=== PATIENT | female | born 1985 | race Caucasian/White ===

== ENCOUNTER 2016-11-29 22:13 | Inpatient (IN) | payer BC ==
[2016-11-29] MEDS ORDERED: ONDANSETRON INJ 4 MG/2 ML VIAL IV ONE ×2 (22:21→23:13)
--- NOTE | 2016-11-29 22:33 | ED.PDOC ---
History of Present Illness - General Chief Complaint: Diabetic Complaint Stated Complaint: elevated blood sugar Time Seen by Provider: 11/29/16 22:17 Source: patient, RN notes reviewed, Vital Signs reviewed, EMS Exam Limitations: no limitations - History of Present Illness Initial Comments: Patient presents to ER via EMS with c/o high blood sugar. Reports she started feeling bad around noon today. She took a nap and woke up around 15:00 and at that time her blood sugar was 450 so she took 3U of insulin. 45 minutes later her blood sugar was 540 so she took 6u of insulin. Her blood sugar continued to go up so she called EMS. + ESPINOZA, nausea and leg pain - typical symptoms for when her blood sugar is high. Last episode of DKA was ~2 months ago. She does have chronic leg pain/neuropathy which she takes Oxycontin for. Timing/Duration: getting worse - over past 10 hours Severity: moderate Improving Factors: nothing Worsening Factors: nothing Associated Symptoms: headaches, malaise, nausea/vomiting Allergies/Adverse Reactions: Allergies NO KNOWN ALLERGY Allergy (Verified 11/29/16 22:27) Home Medications: Ambulatory Orders Insulin Aspart [Novolog Flexpen] 11/29/16 Oxycodone HCl [Oxycontin] 40 mg PO Q12HR 11/29/16 RX: Alprazolam [Alprazolam ER] 0.5 mg PO BID 11/29/16 RX: Gabapentin 800 mg PO TID 11/29/16 Review of Systems - Review of Systems Constitutional: States: malaise, weakness Respiratory: States: no symptoms reported Cardiology: States: no symptoms reported Gastrointestinal/Abdominal: States: nausea, vomiting Musculoskeletal: States: other - chronic leg pain Skin: States: no symptoms reported Neurological: States: headache All other Systems: No Change from Baseline Past Medical History (General) - Patient Medical History Hx Seizures: No Hx Stroke: No Hx Dementia: No Hx Asthma: No Hx of COPD: No Hx Cardiac Disorders: No Hx Congestive Heart Failure: No Hx Pacemaker: No Hx Hypertension: No Hx Thyroid Disease: No Hx Diabetes: Yes Hx Gastroesophageal Reflux: No Hx Renal Disease: No Hx of HIV: No Hx MRSA: No - Vaccination History Hx Tetanus, Diphtheria Vaccination: Yes Hx Influenza Vaccination: Yes Hx Pneumococcal Vaccination: No - Social History Hx Tobacco Use: No Hx Alcohol Use: No Hx Substance Use: Yes Hx Substance Use Treatment: No Hx Depression: No - Female History Patient : No Family Medical History - Family History Mother Family History: Unknown Living Status: Still Living Physical Exam - Physical Exam General Appearance: Ill Appearing, Well Developed, Well Nourished, Other - Smell of acetone on breath Neck: non-tender, supple, normal inspection Respiratory: lungs clear, normal breath sounds, no respiratory distress, no accessory muscle use Cardiovascular/Chest: no gallop, no murmur, tachycardia Gastrointestinal/Abdominal: normal bowel sounds, non tender, soft, no organomegaly Extremity: normal range of motion, normal inspection Neurologic: alert, normal mood/affect, oriented x 3 Skin Exam: normal color, warm/dry Comments: Vital Signs 11/29/16 22:21 Temperature 98.3 F Pulse Rate [ 119 H left] Respiratory 18 Rate Blood Pressure 148/91 [left] O2 Sat by Pulse 97 Oximetry Progress - Progress Progress: 11/29/16 23:16 Blood sugar 696. Started on insulin drip @ 15U/hr. C/O leg/foot pain - will give Dilaudid 1mg IV Have given Zofran 4mg IV X2 Discussed with hospitalist. Will admit for DKA 11/29/16 23:17 Extremely difficult stick for IV and blood. Initially got enough blood for CMP and Acetone. Will get CBC with next draw if possible. - Results/Orders Results/Orders: Laboratory Tests 11/29/16 22:30 Sodium 124 L Potassium 4.2 Chloride 94 L Carbon Dioxide 12 L* Anion Gap 22.2 H BUN 14 Creatinine 0.98 BUN/Creatinine Ratio 14.3 Random Glucose 696 H* Serum Osmolality 283.3 Calcium 8.1 L Total Bilirubin 0.9 AST 25 ALT 46 Alkaline Phosphatase 128 H Serum Total Protein 6.9 Albumin 3.6 Globulin 3.3 Albumin/Globulin Ratio 1.1 Serum Ketones Moderate Departure - Departure Clinical Impression: Dehydration Diabetes mellitus with ketoacidosis Qualifiers: Diabetes mellitus type: type 1 Diabetes mellitus complication detail: without coma Qualified Code(s): E10.10 - Type 1 diabetes mellitus with ketoacidosis without coma Time of Disposition: 23:18 Disposition: Admit Patient Condition: Poor Departure Forms: ED Discharge - Pt. Copy, Patient Portal Self Enrollment Referrals: Taras Lockhart MD [Primary Care Provider] - 1-2 Weeks Home Medications: Ambulatory Orders Insulin Aspart [Novolog Flexpen] 11/29/16 Oxycodone HCl [Oxycontin] 40 mg PO Q12HR 11/29/16 RX: Alprazolam [Alprazolam ER] 0.5 mg PO BID 11/29/16 RX: Gabapentin 800 mg PO TID 11/29/16 Decision To Admit - Decistion To Admit Decision to Admit Reason: Admit from ER - DKA Decision to Admit Date: 11/29/16 Decision to Admit Time: 23:09
[2016-11-29] MEDS ORDERED: SODIUM CHL 0.9% 250ML (AVIVA) 250 ML IVPB ONE (22:51)
[2016-11-29] MEDS ORDERED: INSULIN, REG.(HUMAN) 100 U/ML VIAL ONE (22:52)
[2016-11-29] MEDS ORDERED: INSULIN, REG.(HUMAN) 250 UNITS in SODIUM CHL 0.9% 250ML (AVIVA) 247.5 ML IVPB SCH ×2 (23:00)
[2016-11-29] MEDS ORDERED: HYDROmorphone HCL INJ 2 MG/ML VIAL IV ONE (23:15)
[2016-11-29] MEDS ORDERED: IV SET AND CAP CHANGE INJ INJ SCH (23:45)
[2016-11-29] MEDS ORDERED: SODIUM CHLORIDE 0.9% 1000ML 1,000 ML IVS ONE (23:46)
--- NOTE | 2016-11-30 00:45 | HP ---
SUPERVISING PHYSICIAN: Earl Parker M.D. CHIEF COMPLAINT: Hyperglycemia. HISTORY OF PRESENT ILLNESS: Ms. Malagon is a 31 year-old female patient that presented to the Emergency Department late last night by EMS complaining of high blood sugars. She reported that she started feeling bad around noon on the date of admission. She took a nap, woke up around 3:00 and took her blood sugar and noted it was 450. She then took 3 units of insulin and 40 minutes later rechecked her blood sugar and it had gone up again to 450. Again, she took 6 units of insulin. Her blood sugar continued to rise therefore she called EMS. On arrival, EMS noted the patient had a headache, she was nauseated and was complaining of leg pain. Typically when she has elevated blood sugar she has leg pains and headaches. She does have a significant history of type 1 diabetes since age 8 and complications of neuropathy secondary to poor control. In the Emergency Department, the patient also notes that she just been recently treated for Strep throat this past Friday and started on Amoxicillin. She also reports that she had been having some nausea well over the last couple of weeks on and off, and several members in her household had been having similar symptoms. She had 1 episode of diarrhea but not any additional symptoms. Initial blood sugar in the Emergency Room showed that it was elevated at 696 and potassium was 4.2 with sodium 124 corrected for hyperglycemia was 138. Urinalysis showed to be within normal limits except for 500 glucose and she was noted to have a moderate amount of ketones. She was started on DKA protocol as it was noted that her carbon dioxide was 12 with anion gap of 22.2. She was started on insulin drip per protocol and is now going to be admitted for treatment of diabetic ketoacidosis. PAST MEDICAL HISTORY: 1. Type 1 diabetes mellitus diagnosed at age 8. 2. Peripheral neuropathy secondary to diabetes. 3. Chronic migraines. 4. Multiple episodes of endometriosis. PAST SURGICAL HISTORY: 1. Lap band procedure in 2004 and again in 2011. 2. Gastric sleeve in 2009. 3. Cosmetic surgery included abdominoplasty. 4. Endometrial ablation. HOME MEDICATIONS: 1. Lantus solostar 30 units daily at 1930. 2. Phenergan tablets 25 mg p.r.n. 3. Cymbalta 60 mg daily. 4. Ambien 10 mg at bedtime. 5. Gabapentin 800 mg t.i.d. 6. Alprazolam extended release 0.5 mg twice daily. 7. Oxycodone 40 mg every 12 hours. 8. NovoLog FlexPen sliding scale a.c. and h.s. ALLERGIES: NO KNOWN DRUG ALLERGIES. MEDICAL PROVIDERS: Test Operator - Denys Fuentes. Primary care physician - Dr. Lockhart. FAMILY HISTORY: Unremarkable. SOCIAL HISTORY: The patient is a housewife. She has never smoked. She did drink alcohol but has not drank since age 27. Denies any illicit drug use. REVIEW OF SYSTEMS: CONSTITUTIONAL: Notes general malaise, weakness. Denies any fever or chills. HEENT: Denies any headaches. Notes that she was just recently treated for Streptococcal pharyngitis. Denies any sore throat or ear pain. RESPIRATORY: No shortness of breath, cough or wheezing. CARDIOVASCULAR: No reported chest pains, palpitations or syncopal episodes. GASTROINTESTINAL: As noted in the History of Present Illness, nausea and vomiting. One episode of diarrhea but no constipation. NEUROLOGIC: Reports a headache. No vision changes. No hearing disturbances. No syncopal episodes. PHYSICAL EXAMINATION: VITAL SIGNS: On admission, temperature 98.3, pulse 119, blood pressure 148/91, respirations 18 to 20, satting 97% on room air. Weight is 91.6 kg. GENERAL: The patient appeared ill. She looks dehydrated with a smell of acetone on her breath which is somewhat significant, but alert. NECK: Supple, non-tender. Full range of motion. There is no jugular venous distention. CHEST: Lungs are clear to auscultation bilaterally without any rhonchi, wheezing or rales. CARDIOVASCULAR: Regular rate and rhythm without appreciable murmurs, gallops, or rubs. ABDOMEN: Soft, obese, non-tender with positive bowel sounds. EXTREMITIES: No clubbing, cyanosis or edema. NEUROLOGIC: She is alert and oriented times three. LABORATORY: Normal CBC on admission with a white count 10.5, hemoglobin 12.9, hematocrit 38.6, platelet count 348,000. Chemistries on admission showed sodium initially of 124, potassium 4.2, sodium corrected for a glucose of 696 was 138, chloride was down to 94, carbon dioxide was at 12, anion gap was up to 22.2, BUN 14, creatinine 0.98, glucose was 696, calcium 8.1. Liver functions showed to be within normal limits except for a slightly elevated alkaline phosphatase at 128. Urinalysis showed 500 glucose, otherwise within normal limits. Urine test was negative. Toxicology screen showed initial ketones in the Emergency Department showed to be a moderate amount. RADIOLOGY: There were no radiographic studies for review. ASSESSMENT: 1. Diabetic ketoacidosis felt to be secondary to underlying dehydration from persistent nausea and vomiting from a past viral infection versus complications from uncontrolled diabetes with a degree of gastroparesis. 2. Type 1 diabetes mellitus since 8 years of age. 3. Peripheral neuropathy complications from uncontrolled diabetes. 4. History of chronic migraines. PLAN: The patient will be admitted to the Medical/Surgical floor and started on DKA protocol. She was initiated on the protocol in the Emergency Department with insulin drip and IV fluids. Will plan to provide fluids and manage according to protocol. Repeat labs to include potassium levels, BNPs and ongoing finger sticks hourly as we titrate the blood sugars. Anticipate length of stay to be at least 2 to 3 days. Hopefully we will be able to transition the patient once she shows clearance of her ketones and is no longer in DKA to a diet as tolerated. Once she is tolerating a diet and able to handle subcutaneous insulin, will consider discontinuing the insulin drip and resuming her long-acting insulin Lantus as previous to hospitalization. Once stable and no longer showing any evidence of DKA, certainly the patient can be discharged to have close clinical followup with her candy wrapping machine operator, Dr. Avendaño and her primary care physician, Dr. Lockhart. Until discharge, will continue to monitor and treat appropriately. #[id number] [facility]
[2016-11-30] MEDS: INSULIN, REG.(HUMAN) 250 UNITS in SODIUM CHL 0.9% 250ML (AVIVA) 247.5 ML IVPB SCH ×8 (01:46→23:45)
[2016-11-30] MEDS ORDERED: KCL 40 MEQ/D5 1/2NS 1,000 ML IVS ONE (01:51)
[2016-11-30] MEDS ORDERED: KCL 40 MEQ/D5 1/2NS 1,000 ML IVS PRN ×2 (01:54→08:30)
[2016-11-30] MEDS: ACETAMINOPHEN 325 MG TAB PO PRN (01:59)
[2016-11-30] MEDS: ONDANSETRON INJ 4 MG/2 ML VIAL IV PRN (02:00)
[2016-11-30] MEDS ORDERED: HYDROmorphone HCL INJ 2 MG/ML VIAL IV ONE ×2 (03:28→08:44)
[2016-11-30] MEDS ORDERED: PROMETHAZINE HCL INJ 25 MG in SODIUM CHLORIDE 0.9% 50ML 50 ML IVPB ONE ×2 (03:29→12:24)
[2016-11-30] MEDS ORDERED: SODIUM CHLORIDE 0.9% 50ML 50 ML ONE ×2 (03:35→12:24)
[2016-11-30] MEDS ORDERED: PROMETHAZINE HCL INJ 25 MG/ML VIAL ONE ×2 (03:35→12:23)
[2016-11-30] MEDS ORDERED: GABAPENTIN 400 MG CAP PO SCH ×2 (06:16→09:00)
[2016-11-30] MEDS ORDERED: GABAPENTIN 400 MG CAP PO ONE ×2 (06:21→08:30)
[2016-11-30] MEDS ORDERED: MAGNESIUM SULFATE PREMIX 2GM 2 GM in PREMIX BAG 1 BAG IVPB ONE (06:38)
[2016-11-30] MEDS ORDERED: DULoxetine HCL 30 MG CAP PO ONE (08:02)
[2016-11-30] MEDS ORDERED: MAGNESIUM SULFATE PREMIX 2GM 50 ML IVPB ONE (08:02)
[2016-11-30] MEDS ORDERED: HYDROmorphone HCL INJ 2 MG/ML VIAL ONE ×2 (08:37→12:24)
[2016-11-30] MEDS: SODIUM CHLORIDE 0.9% (FLUSH) 10 ML SYG IV PRN ×3 (08:47→16:35)
[2016-11-30] MEDS: GABAPENTIN 400 MG CAP PO SCH ×3 (08:53→20:38)
[2016-11-30] MEDS: DULoxetine HCL 30 MG CAP PO SCH (08:53)
[2016-11-30] MEDS ORDERED: DEXTROSE 50% 25 GM/50 ML SYG IV PRN (09:32)
[2016-11-30] MEDS ORDERED: GLUCAGON INJ 1 MG VIAL SUBCU PRN (09:32)
[2016-11-30] MEDS: INSULIN LISPRO 100 UNITS/ML PEN SUBCU SCH ×5 (09:52→22:14)
[2016-11-30] MEDS ORDERED: METOCLOPRAMIDE HCL 10 MG/10 ML PO SCH (11:30)
[2016-11-30] MEDS ORDERED: KCL 20MEQ/0.45% NS 1,000 ML IVS PRN (11:41)
[2016-11-30] MEDS: PROMETHAZINE HCL 25 MG TAB PO PRN ×2 (11:55→20:38)
[2016-11-30] MEDS ORDERED: METOCLOPRAMIDE HCL INJ 10 MG/2 ML VIAL IV ONE (12:22)
[2016-11-30] MEDS ORDERED: METOCLOPRAMIDE HCL INJ 10 MG/2 ML VIAL ONE (12:23)
[2016-11-30] MEDS ORDERED: PROMETHAZINE HCL INJ 12.5 MG in SODIUM CHLORIDE 0.9% 50ML 50 ML IVPB PRN (12:24)
[2016-11-30] MEDS ORDERED: KETOROLAC TROMETHAMINE INJ 30 MG/ML VIAL IV ONE (12:28)
[2016-11-30] MEDS: HYDROmorphone HCL INJ 2 MG/ML VIAL IV PRN (12:38)
--- NOTE | 2016-11-30 13:18 | PCM.CORE ---
Physician DVT/VTE - Nurse DVT Assessment & Total Each Risk Factor Represents 1 Point: Medical PT at Bed Rest Each Risk Factor is 1 Point: Obesity (BMI >25) DVT Assessment Score: 2 - 2 Moderate Risk Treatments: Early Ambulation *, Sequential Compression Device Pharmacological: Enoxaparin 40mg SQ Daily
[2016-11-30] MEDS ORDERED: SODIUM CHL 0.9% 250ML (AVIVA) 250 ML IVPB ONE (13:20)
[2016-11-30] MEDS ORDERED: INSULIN, REG.(HUMAN) 100 U/ML VIAL ONE (13:21)
[2016-11-30] MEDS ORDERED: KCL 20MEQ/D5 1/2NS 1,000 ML IVS PRN (13:54)
[2016-11-30] MEDS: ENOXAPARIN SODIUM 40 MG/0.4 ML SYG SUBCU SCH (14:22)
[2016-11-30] MEDS: METOCLOPRAMIDE HCL INJ 10 MG/2 ML VIAL IV SCH ×2 (16:34→20:35)
[2016-11-30] MEDS ORDERED: INSULIN DETEMIR 100 UNITS/ML PEN SUBCU ONE ×2 (20:18→23:55)
[2016-11-30] MEDS ORDERED: KCL 20MEQ/0.45% NS 1,000 ML IVS ONE (20:27)
[2016-11-30] MEDS: ALPRAZolam 0.5 MG TAB PO SCH (20:39)
[2016-11-30] MEDS: KCL 20MEQ/0.45% NS 1,000 ML IVS PRN (20:40)
[2016-11-30] MEDS: ZOLPIDEM TARTRATE 10 MG TAB PO SCH (21:28)
[2016-12-01] MEDS: INSULIN LISPRO 100 UNITS/ML PEN SUBCU SCH ×6 (00:03→22:14)
[2016-12-01] MEDS: HYDROmorphone HCL INJ 2 MG/ML VIAL IV PRN ×6 (00:38→23:17)
[2016-12-01] MEDS: ZOLPIDEM TARTRATE 10 MG TAB PO SCH ×2 (00:41→20:34)
[2016-12-01] MEDS ORDERED: KCL 20MEQ/0.45% NS 1,000 ML IVS ONE (03:58)
[2016-12-01] MEDS: KCL 20MEQ/0.45% NS 1,000 ML IVS PRN (04:00)
[2016-12-01] MEDS ORDERED: SODIUM CHLORIDE 0.9% 1000ML 1,000 ML IVS ONE (06:17)
[2016-12-01] MEDS ORDERED: SODIUM CHLORIDE 0.45% 1000ML 1,000 ML IVS ONE ×2 (06:24→08:37)
[2016-12-01] MEDS ORDERED: INSULIN, REG.(HUMAN) 100 U/ML VIAL IV ONE (06:32)
[2016-12-01] MEDS ORDERED: SODIUM CHL 0.9% 250ML (AVIVA) 250 ML IVPB ONE ×2 (06:42→18:59)
[2016-12-01] MEDS ORDERED: INSULIN, REG.(HUMAN) 100 U/ML VIAL ONE ×2 (06:43→18:59)
[2016-12-01] MEDS ORDERED: SODIUM CHLORIDE 0.45% 1000ML 1,000 ML IVS PRN (07:00)
[2016-12-01] MEDS: INSULIN, REG.(HUMAN) 250 UNITS in SODIUM CHL 0.9% 250ML (AVIVA) 247.5 ML IVPB SCH ×4 (07:38→12:10)
--- NOTE | 2016-12-01 08:29 | PN ---
SUPERVISING PHYSICIAN: Earl Parker MD DATE: 11/30/16 SUBJECTIVE: The patient has had some nausea today. She was unable to tolerate diet earlier in the day and has been on need for n.p.o. status and insulin drills. I discussed with her the fact that she has had such uncontrolled diabetes, possibly she is having some problems with gastroparesis and discussed utilizing Reglan in efforts to help her tolerate oral diet. She remains afebrile. She has had no diarrhea. OBJECTIVE: VITAL SIGNS: Temperature 98.1, pulse 83, blood pressure 101/66, respirations 14 , saturation 98%. I&O: Positive balance of 751 with 2351 in and 1600 out. Weight 91.6 kg. GENERAL: The patient appears to be much more comfortable. She is in no distress. She is alert and oriented x3. CHEST: Lungs are clear to auscultation bilaterally. HEART: Regular rate and rhythm. ABDOMEN: Soft, non-tender, positive bowel sounds. EXTREMITIES: No cyanosis, clubbing, or edema. NEUROLOGIC: She is alert and oriented x 3. LABORATORY: CBC showed a white count of 8.7, hemoglobin 12.2, hematocrit 35.9, platelet count 339,000, differential was negative. Chemistries: electrolytes have now normalized. Blood sugar is stable and has been between 119 and 302. Anion gap has now normalized and is a 14.9 as well as ketones have gone to negative. Electrolytes within normal limits. Potassium 3.9. Liver function within normal limits. Magnesium low at 1.6. ASSESSMENT: 1. Metabolic acidosis secondary to diabetic ketoacidosis felt to be related persistent nausea and vomiting complications from uncontrolled diabetes to include a degree of gastroparesis showing improvement with Reglan. 2. Type 1 diabetes mellitus since 8 years of age. 3. Peripheral neuropathy complicated by uncontrolled diabetes with' hemoglobin A1c being elevated at 11. 4. History of chronic migraines. PLAN: The patient remains on insulin drip, is being transitioned to subcu insulin as she is able to tolerate a diet. We attempted diet earlier today, she was obviously not tolerating this as she was having some vomiting with no nausea. We are going to utilize Reglan a.c. and h.s. after a single loading dose of 10 mg. We will start a diet of full liquids and advance as tolerated. As she is able to come off the drip, we will start her on subcu ling acting insulin with Levemir as well as transition to a.c. and h.s. blood sugars. Plan to restart her medications once they are verified. She will be on DVT prophylaxis. Will continue with IV fluids depending on her status on insulin drip. Apparently she was on D5 half normal saline with 20 of potassium and was running at 200 an hour. After she transitions to subcu, we will transition her fluids to half normal saline and remain tenderness potassium replacement as needed and saturate fluid to hydration status. Anticipate discharge hopefully tomorrow or Friday, once she is able to fully tolerate diet and shows stabilization of her blood sugars once off insulin drip. Until discharge, we will continue to monitor her closely and treat appropriately Once discharged, she will certainly need to have followup with her well services operator in [place] , Dr. Avendaño, and her primary care physician, Dr. Lockhart. #[id number] [facility]
[2016-12-01] MEDS ORDERED: SODIUM CHLORIDE 0.45% IVS PRN (08:34)
[2016-12-01] MEDS ORDERED: POTASSIUM CHLORIDE IVS PRN (08:34)
[2016-12-01] MEDS ORDERED: POTASSIUM CHLORIDE 40mEq 20ML VIAL ONE (08:37)
[2016-12-01] MEDS: METOCLOPRAMIDE HCL INJ 10 MG/2 ML VIAL IV SCH ×5 (08:42→20:34)
[2016-12-01] MEDS: DULoxetine HCL 30 MG CAP PO SCH (09:38)
[2016-12-01] MEDS: GABAPENTIN 400 MG CAP PO SCH ×3 (09:39→20:34)
[2016-12-01] MEDS: ALPRAZolam 0.5 MG TAB PO SCH ×2 (09:39→20:34)
[2016-12-01] MEDS: ENOXAPARIN SODIUM 40 MG/0.4 ML SYG SUBCU SCH (09:39)
[2016-12-01] MEDS ORDERED: KCL 40 MEQ/D5 1/2NS 1,000 ML IVS ONE (09:58)
[2016-12-01] MEDS ORDERED: KCL 40 MEQ/D5 1/2NS 1,000 ML IVS PRN (10:00)
[2016-12-01] MEDS: ACETAMINOPHEN 325 MG TAB PO PRN (13:42)
[2016-12-01] MEDS: KCL 20MEQ/D5 1/2NS 1,000 ML IVS PRN ×3 (14:56→22:57)
[2016-12-01] MEDS ORDERED: INSULIN DETEMIR 100 UNITS/ML PEN SUBCU SCH (21:00)
[2016-12-02] MEDS: INSULIN, REG.(HUMAN) 250 UNITS in SODIUM CHL 0.9% 250ML (AVIVA) 247.5 ML IVPB SCH ×2 (00:09)
[2016-12-02] MEDS: ONDANSETRON INJ 4 MG/2 ML VIAL IV PRN ×2 (01:40→07:39)
[2016-12-02] MEDS: HYDROmorphone HCL INJ 2 MG/ML VIAL IV PRN (03:15)
[2016-12-02] MEDS: KCL 20MEQ/D5 1/2NS 1,000 ML IVS PRN (03:17)
[2016-12-02] MEDS: INSULIN LISPRO 100 UNITS/ML PEN SUBCU SCH (06:24)
[2016-12-02] MEDS: METOCLOPRAMIDE HCL INJ 10 MG/2 ML VIAL IV SCH ×2 (06:28→11:01)
[2016-12-02] MEDS: ACETAMINOPHEN 325 MG TAB PO PRN (06:39)
[2016-12-02] MEDS: GABAPENTIN 400 MG CAP PO SCH (08:30)
[2016-12-02] MEDS: ENOXAPARIN SODIUM 40 MG/0.4 ML SYG SUBCU SCH (08:30)
[2016-12-02] MEDS: DULoxetine HCL 30 MG CAP PO SCH (08:30)
[2016-12-02] MEDS: PROMETHAZINE HCL 25 MG TAB PO PRN (08:30)
[2016-12-02] MEDS: ALPRAZolam 0.5 MG TAB PO SCH (08:30)
[2016-12-02 09:04] VITALS: O2SAT 93
[2016-12-02] MEDS ORDERED: SODIUM CHLORIDE 0.9% (FLUSH) 10 ML SYG IV SCH (09:30)
[2016-12-02] MEDS ORDERED: INSULIN, REG.(HUMAN) 100 U/ML VIAL SUBCU ONE (09:55)
[2016-12-02] MEDS ORDERED: INSULIN DETEMIR 100 UNITS/ML PEN SUBCU ONE (10:02)
--- NOTE | 2016-12-02 10:19 | PN ---
SUPERVISING PHYSICIAN: Earl Parker MD DATE: 12/01/16 SUBJECTIVE: The patient is no longer having any nausea but last night she was transitioned to subcu insulin and this morning it was noted she had gone back in DKA with a glucose over 600. Therefore, she has been reinitiated on DKA protocol. She does remain afebrile. She has had no diarrhea. She was given Reglan in efforts to stop the nausea and vomiting which appears to help. OBJECTIVE: VITAL SIGNS: Temperature 97.9, pulse 88, blood pressure 100/67, respirations 14 , saturation 98% on room air. I&O: Still positive balance of 3618 with 6418 in and 2800 out with 400 emesis. .. CHEST: Lungs are clear to auscultation bilaterally. HEART: Regular rate and rhythm. ABDOMEN: Obese, soft, non-tender, positive bowel sounds. EXTREMITIES: No cyanosis, clubbing, or edema. NEUROLOGIC: She is alert and oriented x 3. LABORATORY: CBC this morning shows a white count of 10,000, hemoglobin 11.8, hematocrit 36.0, platelet count 306,000, differential within normal limits. Chemistries: Blood sugars yesterday were fairly well controlled on insulin drip ranging in the 120s up to 283. This morning, AM labs showed that her sodium was low at 131 , corrected for a glucose of 604 was at 140, potassium up to 5.2, carbon dioxide down to 19, anion gap elevated up to 18. BUN 9, creatinine 0.86, calcium 8.4, magnesium once again low at 1.7 despite replacement. Liver functions showed to be within normal limits. Lipase and amylase both within normal limits as well as TSH was at 1.75. RADIOLOGY/MICROBIOLOGY: No studies for review. ASSESSMENT: 1. Metabolic acidosis secondary to diabetic ketoacidosis likely related to nausea and vomiting previous admission with complications from uncontrolled diabetes with a degree of gastroparesis showing slow improvement in refractory resulting in recurrence of DK and despite aggressive treatment requiring initiation of DKA protocol once again. 2. Type 1 diabetes mellitus since 8 years of age with poor control as evidenced by a recent A1C of 11 on admission. 3. Peripheral neuropathy complications from uncontrolled diabetes.. 4. History of chronic migraines. PLAN: The patient has been reinitiated on DKA protocol with plans to increase her fluids to 2 liters this morning and this will be continued with IV fluids at 200 to 250 an hour as appropriate clinically. She will be on insulin drip as per protocol. Again, once she shows resolution clinically of DKA, slowly transition her to subcu insulin once she hs completely rehydrated. Hopefully, we will be able to start her on a diet this afternoon and in the morning stop the insulin drip and continue treatment with long acting and sliding scale. Until discharge, we will continue to monitor as per protocol and treat appropriately. #[id number] [facility]
[2016-12-02] MEDS ORDERED: MAGNESIUM SULFATE PREMIX 2GM 2 GM in PREMIX BAG 1 BAG IVPB ONE (10:24)
[2016-12-02] MEDS ORDERED: MAGNESIUM SULFATE PREMIX 2GM 50 ML IVPB ONE (10:27)
[2016-12-02] MEDS ORDERED: INSULIN LISPRO 100 UNITS/ML PEN SUBCU SCH ×6 (12:16→16:30)
[2016-12-02 13:47] VITALS: BP 115/53; TEMP 98.3
--- NOTE | 2016-12-12 22:13 | DS ---
SUPERVISING PHYSICIAN: Sammy Swan M.D. DISCHARGE DIAGNOSIS: 1. Metabolic acidosis secondary to diabetic ketoacidosis due to persistent nausea and vomiting prior to admission from complications of uncontrolled diabetes secondary to gastroparesis showing improvement after treatment with DKA protocol. 2. Type 1 diabetes mellitus since 8 years of age with poor control as evidenced by recent A1C of 11 on admission. 3. Peripheral neuropathy complications from uncontrolled diabetes. 4. Gastroparesis complications from uncontrolled diabetes. 5. History of chronic migraines. HISTORY OF PRESENT ILLNESS: Ms. Malagon is a 31 year-old female patient that presented to the Emergency Department on the night of 11/29/16 by EMS complaining of high blood sugars. She reported that she started feeling bad around noon on the date of admission. She took a nap, woke up around 3:00 and took her blood sugar and noted it was 450. She then took 3 units of insulin and 40 minutes later rechecked her blood sugar and it had gone up to 450. Again , she took 6 units of insulin. Her blood sugar continued to increase therefore she called EMS. On arrival, EMS noted the patient had a headache, she was nauseated and was complaining of leg pains. Typically when she has elevated blood sugar she has leg pains and headaches. She does have a significant history of type 1 diabetes since age 8 and complications of neuropathy secondary to poor control. In the Emergency Department, the patient noted that she had just been recently treated for Strep throat infection that was treated this past Friday and started on Amoxicillin. She also reported that she had been having some nausea over the last couple of weeks on and off, and several members in her household had been having similar symptoms. She had 1 episode of diarrhea but no additional symptoms prior to admission. Initial blood sugar in the Emergency Room showed that it was elevated at 696 and potassium was 4.2. Urinalysis showed to be within normal limits except for excessive glucose at 500 and she was noted to have a moderate amount of ketones. She was then started on DKA protocol as it was noted that her carbon dioxide was 12 with anion gap of 22.2. She was started on insulin drip per protocol and then admitted to the Medical/Surgical floor for treatment of diabetic ketoacidosis. LABORATORY: White count on admission was 10,500, at discharge was 10,100, hemoglobin and hematocrit were stable, at discharge were 11.8 and 36.0 with platelet count 306,000. Differential was within normal limits. Blood gas analysis showed that she was acidotic at 7.31 with bicarb of 17, PCO2 of 35 with PO2 of 58 with O2 saturations 90% on room air. Initial chemistries in the Emergency Department showed she had a glucose of 696, sodium 124 with correction to 135, potassium 4.2, carbon dioxide was 12, anion gap was 22.2. Serum osmolality was 283, calcium 8.1, magnesium 1.6. Liver functions showed to be within normal limits except for a slightly elevated alkaline phosphatase at 128. HOSPITAL COURSE: After starting initial DKA protocol, blood sugars showed good response. On 11/30/16, it was down to 133 and after IV fluids and continued treatment her anion gap had normalized and was at 11. Sodium was normal at 137 , potassium 3.7. She remained on insulin drip throughout the day and slowly transitioned to p.o. fluids, and around midnight or shortly before was transitioned to subcue insulin, however she once again went back in DKA on the morning of 12/01/16 where she was noted that her carbon dioxide was 19, sodium was 131, potassium was 5.2, glucoses went up to 604 again. She was then reinitiated on insulin drip per protocol for DKA and treated aggressively with fluids for an additional 18 hours after which time she was transitioned to subcue insulin and her sodium was 136, potassium 4.6, glucose was 164. She was showing stable glucoses in the 120s to 150s. She was then able to be transitioned to subcue insulin at which time insulin protocol was stopped. She was started on diet and was tolerating diet well. On date of discharge in the afternoon was able to tolerate diet with no nausea or vomiting and was showing stable blood sugars. In treatment of gastroparesis, she was given Reglan initially 10 mg. This was followed-up with 5 mg a.c. and h.s. which she tolerated well with no complications. On the afternoon of 12/02/16, the patient had shown good response clinically and was to be discharged to continue with treatment in the outpatient setting. PLAN: Ms. Malagon was discharged on 12/02/16. She is to have closely clinical followup with her research compliance specialist, Dr. Henriquez and Dr. Lockhart as scheduled. She is to see Dr. Henriquez on 12/04/16 and on 12/06/[address] Lockhart. She is to resume her home medications as instructed. She was told to take her new prescriptions as directed and encourage fluids to prevent any dehydration. She is to return to the hospital should she have any concerning symptoms. At discharge, the only new medication prescribed was Reglan 5 mg before meals and at bedtime, #30 until she is seen in followup by her research compliance specialist. She is to follow a sliding scale and continue all other medications as prior to discharge. Diet at discharge is diabetic diet. Activity was to increase activity as tolerated. Condition at discharge was stable and improved. #[id number] [facility] [place]
== END 2016-12-02 15:01 | disposition home or self-care (01) | DRG 639 ==
LOC: ER 22:13 → MS 11-30 00:44 → OBSVTOIN 11-30 00:44
PROVIDERS: ADMIT Nurse Practitioner Family; ATTEND Nurse Practitioner Family
DX: E10.10 Type 1 diabetes mellitus with ketoacidosis without coma (principal); E10.65 Type 1 diabetes mellitus with hyperglycemia; E10.43 Type 1 diabetes mellitus with diabetic autonomic (poly)neuropathy; K31.84 Gastroparesis; E86.0 Dehydration; G43.909 Migraine, unspecified, not intractable, without status migrainosus; Z68.34 Body mass index [BMI] 34.0-34.9, adult; E66.9 Obesity, unspecified; Z98.84 Bariatric surgery status; Z79.4 Long term (current) use of insulin; Z79.899 Other long term (current) drug therapy; Z79.891 Long term (current) use of opiate analgesic; E10.42 Type 1 diabetes mellitus with diabetic polyneuropathy

== ENCOUNTER 2016-12-30 16:19 | Emergency (ER) | payer BC ==
[2016-12-30 16:35] VITALS: TEMP 98.4
[2016-12-30] MEDS ORDERED: LACTATED RINGERS 1,000 ML IVS ONE ×2 (16:59→19:33)
--- NOTE | 2016-12-30 16:59 | ED.PDOC ---
History of Present Illness - General Chief Complaint: General Stated Complaint: internal ovarian type pain Time Seen by Provider: 12/30/16 16:23 Source: patient Exam Limitations: no limitations - History of Present Illness Initial Comments: Bobbi Malagon 31 y/o female stated that she had been having intermittent mid abdominal pains for the last one week which got worse today .Had regular bm ,no diarrhea,felt nauseated just ate breakfast. Timing/Duration: 1 week, getting worse Severity: moderate Improving Factors: nothing Worsening Factors: nothing Associated Symptoms: denies symptoms Allergies/Adverse Reactions: Allergies NO KNOWN ALLERGY Allergy (Verified 11/29/16 22:27) Home Medications: Ambulatory Orders Alprazolam [Alprazolam ER] 0.5 mg PO BID 11/29/16 Gabapentin 800 mg PO TID 11/29/16 Insulin Aspart [Novolog Flexpen] unit SC ACHS 11/29/16 Oxycodone HCl [Oxycontin] 40 mg PO Q12HR 11/29/16 Duloxetine HCl [Cymbalta] 60 mg PO QAM 11/30/16 Insulin Glargine [Lantus Solostar] 30 unit SC DAILY@1930 11/30/16 Promethazine Tab [Phenergan Tablet] 25 tablet PO PRN PRN 11/30/16 Zolpidem Tartrate [Ambien] 10 mg PO BEDTIME 11/30/16 Metoclopramide Tab [Reglan Tab] 5 mg PO ACHS #30 tab 12/02/16 Review of Systems - Review of Systems Constitutional: States: no symptoms reported EENTM: States: no symptoms reported Respiratory: States: no symptoms reported Cardiology: States: no symptoms reported Gastrointestinal/Abdominal: States: abdominal pain Genitourinary: States: no symptoms reported Musculoskeletal: States: no symptoms reported Past Medical History (General) - Patient Medical History Hx Seizures: No Hx Stroke: No Hx Dementia: No Hx Asthma: No Hx of COPD: No Hx Cardiac Disorders: No Hx Congestive Heart Failure: No Hx Pacemaker: No Hx Hypertension: No Hx Thyroid Disease: No Hx Diabetes: Yes - IDDM Hx Gastroesophageal Reflux: No Hx Renal Disease: No Hx of HIV: No Hx MRSA: No Surgical History: gastric bypass - gastric sleeve - Vaccination History Hx Tetanus, Diphtheria Vaccination: Yes Hx Influenza Vaccination: No Hx Pneumococcal Vaccination: No - Social History Hx Tobacco Use: Yes Hx Alcohol Use: Yes Hx Substance Use: No Hx Substance Use Treatment: No Hx Depression: Yes Hx Physical Abuse: No Hx Emotional Abuse: No - Activities of Daily Living Patient Lives Alone: No - family - Female History Hx Last Menstrual Period: 12/19/16 Patient : No - Triage Comment ED Triage Comment: Pt states she has severe ovarian type pain that started 4 days ago that has gotten worse throughout the day today. Family Medical History - Family History Mother Family History: Unknown Living Status: Still Living Hx Family Asthma: No Hx Family Congestive Heart Failure: No Hx Family Hypertension: No Hx Family Stroke: No Hx Cardiac Disease: No Hx Family Diabetes: No Hx Family Cancer: No Father Family History: Unknown Living Status: Still Living Hx Family Asthma: No Hx Family Congestive Heart Failure: No Hx Family Hypertension: No Hx Family Stroke: No Hx Cardiac Disease: No Hx Family Diabetes: No Hx Family Cancer: No Physical Exam - Physical Exam General Appearance: Alert, Comfortable, No apparent distress Eye Exam: bilateral normal Ears, Nose, Throat: hearing grossly normal, normal ENT inspection, normal pharynx Neck: full range of motion, supple Respiratory: chest non-tender, lungs clear, normal breath sounds Cardiovascular/Chest: normal peripheral pulses, regular rate, rhythm, no murmur Peripheral Pulses: radial,right: 2+, radial,left: 2+ Gastrointestinal/Abdominal: normal bowel sounds, soft, tenderness - mid abdomen no peritoneal signs Back Exam: no CVA tenderness, no vertebral tenderness Extremity: non-tender, no pedal edema, no calf tenderness Neurologic: no motor/sensory deficits, alert, oriented x 3 Skin Exam: normal color, warm/dry Progress - Progress Progress: 12/30/16 20:40 Last Vital Signs Temp 98.4 F 12/30/16 16:30 Pulse 107 H 12/30/16 16:30 Resp 18 12/30/16 16:30 BP 153/83 12/30/16 16:30 Pulse Ox 98 12/30/16 16:30 Laboratory Tests 12/30/16 12/30/16 12/30/16 16:59 17:18 17:18 WBC 11.6 H RBC 4.99 Hgb 15.2 Hct 44.8 MCV 89.8 MCH 30.4 MCHC 34.0 RDW 13.5 Plt Count 416 H MPV 8.9 Absolute Neuts (auto) 8.80 H Absolute Lymphs (auto) 1.70 Absolute Monos (auto) 0.70 Absolute Eos (auto) 0.10 Absolute Basos (auto) 0.20 H Neutrophils % 76.2 Lymphocytes % 14.8 L Monocytes % 5.8 Eosinophils % 1.3 Basophils % 1.9 Sodium 135 Potassium 3.3 L Chloride 101 Carbon Dioxide 19 L Anion Gap 18.3 H BUN 12 Creatinine 1.03 BUN/Creatinine Ratio 11.7 Random Glucose 267 H Serum Osmolality 279.2 Calcium 9.4 Total Bilirubin 1.1 H AST 19 ALT 15 Alkaline Phosphatase 119 Serum Total Protein 8.2 Albumin 4.2 Globulin 4.0 H Albumin/Globulin Ratio 1.1 Lipase < 14 L Serum HCG, Qual Urine Color Urine Appearance Urine pH Ur Specific [place] Urine Protein Urine Glucose (UA) Urine Ketones Urine Blood Urine Nitrite Urine Bilirubin Urine Urobilinogen Ur Leukocyte Esterase Urine RBC Urine WBC Ur Epithelial Cells Amorphous Sediment Urine Bacteria Urine Yeast Urine Opiates Screen Negative Urine Barbiturates Negative Ur Phencyclidine Scrn Negative U Amphetamin/Meth Scrn Negative U Benzodiazepines Scrn Negative U Cocaine Metab Screen Negative U Cannabinoids Screen Negative 12/30/16 12/30/16 17:18 17:25 WBC RBC Hgb Hct MCV MCH MCHC RDW Plt Count MPV Absolute Neuts (auto) Absolute Lymphs (auto) Absolute Monos (auto) Absolute Eos (auto) Absolute Basos (auto) Neutrophils % Lymphocytes % Monocytes % Eosinophils % Basophils % Sodium Potassium Chloride Carbon Dioxide Anion Gap BUN Creatinine BUN/Creatinine Ratio Random Glucose Serum Osmolality Calcium Total Bilirubin AST ALT Alkaline Phosphatase Serum Total Protein Albumin Globulin Albumin/Globulin Ratio Lipase Serum HCG, Qual Negative Urine Color Yellow Urine Appearance Clear Urine pH 5.0 Ur Specific [place] 1.015 Urine Protein Negative Urine Glucose (UA) 500 H Urine Ketones >=160 Urine Blood Trace-intact H Urine Nitrite Negative Urine Bilirubin Small H Urine Urobilinogen 0.2 Ur Leukocyte Esterase Negative Urine RBC 0-1 Urine WBC 1-3 Ur Epithelial Cells 1-3 Amorphous Sediment 1+ Urine Bacteria Rare Urine Yeast 1+ budding H Urine Opiates Screen Urine Barbiturates Ur Phencyclidine Scrn U Amphetamin/Meth Scrn U Benzodiazepines Scrn U Cocaine Metab Screen U Cannabinoids Screen - EKG/XRAY/CT CT Ordered: Yes - abd /pelvis : no acute abnormalities Departure - Departure Clinical Impression: Abdominal pain Qualifiers: Abdominal location: unspecified location Qualified Code(s): R10.9 - Unspecified abdominal pain Time of Disposition: 20:56 Disposition: Discharge to Home or Self Care Departure Forms: ED Discharge - Pt. Copy, Patient Portal Self Enrollment Instructions: DI for Abdominal Pain-Adult Referrals: Taras Lockhart MD [Primary Care Provider] - 1-2 Weeks Home Medications: Ambulatory Orders Alprazolam [Alprazolam ER] 0.5 mg PO BID 11/29/16 Gabapentin 800 mg PO TID 11/29/16 Insulin Aspart [Novolog Flexpen] unit SC ACHS 11/29/16 Oxycodone HCl [Oxycontin] 40 mg PO Q12HR 11/29/16 Duloxetine HCl [Cymbalta] 60 mg PO QAM 11/30/16 Insulin Glargine [Lantus Solostar] 30 unit SC DAILY@1930 11/30/16 Promethazine Tab [Phenergan Tablet] 25 tablet PO PRN PRN 11/30/16 Zolpidem Tartrate [Ambien] 10 mg PO BEDTIME 11/30/16 Metoclopramide Tab [Reglan Tab] 5 mg PO ACHS #30 tab 12/02/16 Additional Instructions: Continue with current medication;Follow up with primary md 12/31/2016 call for appointment
[2016-12-30] MEDS ORDERED: MORPHINE SULFATE INJ 10 MG/ML VIAL IV ONE (18:46)
[2016-12-30] MEDS ORDERED: PROMETHAZINE HCL INJ 25 MG/ML VIAL IM ONE (18:46)
--- NOTE | 2016-12-30 20:27 | CT ---
EXAM DESCRIPTION: Abdomen/Pelvis w/Contrast CLINICAL HISTORY: pain COMPARISON: 07/06/2011 TECHNIQUE: Contiguous axial images of the abdomen and pelvis were obtained after the administration of intravenous contrast followed by reconstruction images.This exam was performed according to our departmental dose-optimization program, which includes automated exposure control, adjustment of the mA and/or kV according to patient size and/or use of iterative reconstruction technique. FINDINGS: There is pancreatic atrophy. Distal stomach wall is mildly thickened but there is no definite surrounding inflammation of the fat. At the uterine fundus there are metallic linear densities that could reflect postoperative change. Clinical correlation with history is recommended. There are small foci of gas in the right posterior flank subcutaneous fat, which is nonspecific. There is no associated mass or significant fluid in this region. The liver, spleen, pancreas and kidneys are within normal limits. There is no hydronephrosis. The gallbladder is unremarkable. Adrenal glands are within normal limits. Aorta is normal in caliber and tapering. No significant free fluid. No free air. No bowel obstruction. There is no stranding of the mesenteric fat. The appendix appears normal. No evidence of periappendiceal inflammation. IMPRESSION: Possible mild inflammation of the distal stomach wall. Nonspecific small amounts of gas in the right flank subcutaneous fat. 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
[2016-12-30] MEDS ORDERED: PANTOPRAZOLE SODIUM IV 40 MG VIAL IV ONE (20:46)
[2016-12-30] MEDS ORDERED: HYDROCOD/APAP 7.5/325 (ER DISP) #3 TAB PO ONE (21:05)
[2016-12-30] MEDS ORDERED: HYDROCOD/APAP 10/325 (ER DISP) # 3 tablets PO ONE (21:26)
[2016-12-30 21:39] VITALS: BP 143/77; O2SAT 99
== END 2016-12-30 21:46 | disposition home or self-care (01) ==
LOC: ER 16:19
DX: R10.9 Unspecified abdominal pain (principal); F32.9 Major depressive disorder, single episode, unspecified; E11.9 Type 2 diabetes mellitus without complications; Z87.891 Personal history of nicotine dependence; Z98.84 Bariatric surgery status; Z79.4 Long term (current) use of insulin; Z79.899 Other long term (current) drug therapy
CPT/HCPCS: 36415; 74177; 80053; 80307; 81001; 83690; 84703; 85025; J2270; J2550; J7120

== ENCOUNTER 2017-01-02 20:06 | Emergency (ER) | payer BC ==
--- NOTE | 2017-01-02 21:29 | ED.PDOC ---
History of Present Illness - General Chief Complaint: Skin/Abrasion/Tear Stated Complaint: burning stinging rash over abd Time Seen by Provider: 01/02/17 21:29 Source: patient Exam Limitations: no limitations - History of Present Illness Initial Comments: Bobbi Malagon 31 y/o female stated that she had skin rash that broke our 2 days ago and also her tongue is sore.Had applied Benadryl cream which gradually got better but rash came back.No fever ,no diarrhea,no achy throat.Stated brother had same rash was prescibed anti virals Timing/Duration: other - 2 days ago Severity: moderate Improving Factors: nothing Worsening Factors: nothing Associated Symptoms: other - itching Allergies/Adverse Reactions: Allergies NO KNOWN ALLERGY Allergy (Verified 11/29/16 22:27) Home Medications: Ambulatory Orders Alprazolam [Alprazolam ER] 0.5 mg PO BID 11/29/16 Gabapentin 800 mg PO TID 11/29/16 Insulin Aspart [Novolog Flexpen] unit SC ACHS 11/29/16 Oxycodone HCl [Oxycontin] 40 mg PO Q12HR 11/29/16 Duloxetine HCl [Cymbalta] 60 mg PO QAM 11/30/16 Insulin Glargine [Lantus Solostar] 30 unit SC DAILY@1930 11/30/16 Promethazine Tab [Phenergan Tablet] 25 tablet PO PRN PRN 11/30/16 Zolpidem Tartrate [Ambien] 10 mg PO BEDTIME 11/30/16 Metoclopramide Tab [Reglan Tab] 5 mg PO ACHS #30 tab 12/02/16 Valacyclovir HCl 1 gm PO TID #20 tab 01/02/17 Review of Systems - Review of Systems Constitutional: States: no symptoms reported EENTM: States: no symptoms reported Respiratory: States: no symptoms reported Cardiology: States: no symptoms reported Gastrointestinal/Abdominal: States: no symptoms reported Genitourinary: States: no symptoms reported Musculoskeletal: States: no symptoms reported Skin: States: see HPI Past Medical History (General) - Patient Medical History Hx Seizures: No Hx Stroke: No Hx Dementia: No Hx Asthma: No Hx of COPD: No Hx Cardiac Disorders: No Hx Congestive Heart Failure: No Hx Pacemaker: No Hx Hypertension: No Hx Thyroid Disease: No Hx Diabetes: Yes - IDDM Hx Gastroesophageal Reflux: No Hx Renal Disease: No Hx Cancer: No Hx of HIV: No Hx Hepatitis C: No Hx MRSA: No Surgical History: gastric bypass - Vaccination History Hx Tetanus, Diphtheria Vaccination: Yes Hx Influenza Vaccination: No Hx Pneumococcal Vaccination: No - Social History Hx Tobacco Use: Yes Hx Alcohol Use: Yes Hx Substance Use: No Hx Substance Use Treatment: No Hx Depression: Yes Hx Physical Abuse: No Hx Emotional Abuse: No - Female History Hx Last Menstrual Period: 12/19/16 Patient : No Family Medical History - Family History Mother Family History: Unknown Living Status: Still Living Hx Family Asthma: No Hx Family Congestive Heart Failure: No Hx Family Hypertension: No Hx Family Stroke: No Hx Cardiac Disease: No Hx Family Diabetes: No Hx Family Cancer: No Father Family History: Unknown Living Status: Still Living Hx Family Asthma: No Hx Family Congestive Heart Failure: No Hx Family Hypertension: No Hx Family Stroke: No Hx Cardiac Disease: No Hx Family Diabetes: No Hx Family Cancer: No Physical Exam - Physical Exam General Appearance: Alert, Comfortable, No apparent distress, Other - daughter present in the room during exam Eye Exam: bilateral normal Ears, Nose, Throat: hearing grossly normal, normal ENT inspection, normal pharynx Neck: full range of motion, supple, normal inspection Respiratory: chest non-tender, lungs clear, normal breath sounds Cardiovascular/Chest: normal peripheral pulses, regular rate, rhythm, no murmur Peripheral Pulses: radial,right: 2+, radial,left: 2+ Gastrointestinal/Abdominal: non tender, soft, no organomegaly Extremity: no pedal edema, no calf tenderness Neurologic: alert, oriented x 3 Skin Exam: normal color, warm/dry, rash - maculopapular skin rash anterior chest and abdominal area Progress - Progress Progress: 01/02/17 22:51 Last Vital Signs Temp 98.5 F 01/02/17 21:15 Pulse 94 H 01/02/17 21:15 Resp 18 01/02/17 21:15 BP 140/92 01/02/17 21:15 Pulse Ox 96 01/02/17 21:15 - Results/Orders Results/Orders: Laboratory Tests 01/02/17 01/02/17 01/02/17 21:51 21:51 21:51 WBC 7.8 RBC 4.36 Hgb 13.0 Hct 39.0 MCV 89.4 MCH 29.8 MCHC 33.3 RDW 13.3 Plt Count 321 MPV 9.9 Absolute Neuts (auto) 5.10 Absolute Lymphs (auto) 2.10 Absolute Monos (auto) 0.40 Absolute Eos (auto) 0.10 Absolute Basos (auto) 0.10 Neutrophils % 65.8 Lymphocytes % 26.4 Monocytes % 4.9 Eosinophils % 1.6 Basophils % 1.3 Sodium 133 L Potassium 3.8 Chloride 97 L Carbon Dioxide 26 Anion Gap 13.8 BUN 15 Creatinine 1.10 BUN/Creatinine Ratio 13.6 Random Glucose 368 H Serum Osmolality 282.2 Calcium 8.5 Total Bilirubin 0.5 AST 32 ALT 16 Alkaline Phosphatase 120 Serum Total Protein 6.9 Albumin 3.4 Globulin 3.5 Albumin/Globulin Ratio 1.0 L Monoscreen Negative Departure - Departure Clinical Impression: Skin rash Time of Disposition: 22:56 Disposition: Discharge to Home or Self Care Condition: Fair Departure Forms: ED Discharge - Pt. Copy, Patient Portal Self Enrollment Instructions: DI for Rash Referrals: Taras Lockhart MD [Primary Care Provider] - 1-2 Weeks Prescriptions: Valacyclovir HCl 1 gm PO TID #20 tab Home Medications: Ambulatory Orders Alprazolam [Alprazolam ER] 0.5 mg PO BID 11/29/16 Gabapentin 800 mg PO TID 11/29/16 Insulin Aspart [Novolog Flexpen] unit SC ACHS 11/29/16 Oxycodone HCl [Oxycontin] 40 mg PO Q12HR 11/29/16 Duloxetine HCl [Cymbalta] 60 mg PO QAM 11/30/16 Insulin Glargine [Lantus Solostar] 30 unit SC DAILY@1930 11/30/16 Promethazine Tab [Phenergan Tablet] 25 tablet PO PRN PRN 11/30/16 Zolpidem Tartrate [Ambien] 10 mg PO BEDTIME 11/30/16 Metoclopramide Tab [Reglan Tab] 5 mg PO ACHS #30 tab 12/02/16 Valacyclovir HCl 1 gm PO TID #20 tab 01/02/17 Additional Instructions: Follow up with primary md 01/06/2017 call for appointment
[2017-01-02] MEDS ORDERED: ACYCLOVIR 200 MG CAP ONE (23:15)
[2017-01-02 23:38] VITALS: BP 121/85; TEMP 98.4; O2SAT 92
[2017-01-03] MEDS ORDERED: ACYCLOVIR 200 MG CAP PO SCH (06:00)
== END 2017-01-02 23:40 | disposition home or self-care (01) ==
LOC: ER 20:06
DX: R21 Rash and other nonspecific skin eruption (principal); E11.9 Type 2 diabetes mellitus without complications; Z79.4 Long term (current) use of insulin; Z79.899 Other long term (current) drug therapy

== ENCOUNTER 2017-01-11 19:32 | Inpatient (IN) | payer BC ==
[2017-01-11] MEDS ORDERED: SODIUM CHLORIDE 0.9% 1000ML 1,000 ML IVS ONE (19:55)
[2017-01-11] MEDS ORDERED: ONDANSETRON INJ 4 MG/2 ML VIAL IV ONE (19:55)
--- NOTE | 2017-01-11 20:05 | ED.PDOC ---
History of Present Illness - General Chief Complaint: Diabetic Complaint Stated Complaint: n/v x2 days, elevated blood sugar Time Seen by Provider: 01/11/17 19:40 Source: patient, RN notes reviewed, Vital Signs reviewed Exam Limitations: no limitations - History of Present Illness Initial Comments: Patient present to the ER with c/o elevated blood sugar. Reports she has not been feeling well for the past 2 days but her blood sugars had been running 190- 300. She started vomiting yesterday. Today she was getting ready to go out. She checked her blood sugar and it was 190 so she took 3U of regular insulin because she knew her blood sugar would go up. She also took her usual PM dose of Lantus 25U ~1 hour ago. She checked her blood sugar and her machine read "high" so she came to the ER. She is a Type 1 insulin dependant diabetic who was first diagnosed @ age 8. Timing/Duration: getting worse - Over the past 2 days Severity: moderate Improving Factors: nothing Worsening Factors: nothing Associated Symptoms: loss of appetite, malaise, nausea/vomiting Allergies/Adverse Reactions: Allergies NO KNOWN ALLERGY Allergy (Verified 11/29/16 22:27) Home Medications: Ambulatory Orders Alprazolam [Alprazolam ER] 0.5 mg PO BID 11/29/16 Gabapentin 800 mg PO TID 11/29/16 Insulin Aspart [Novolog Flexpen] unit SC ACHS 11/29/16 Oxycodone HCl [Oxycontin] 40 mg PO Q12HR 11/29/16 Duloxetine HCl [Cymbalta] 60 mg PO QAM 11/30/16 Insulin Glargine [Lantus Solostar] 30 unit SC DAILY@1930 11/30/16 Promethazine Tab [Phenergan Tablet] 25 tablet PO PRN PRN 11/30/16 Zolpidem Tartrate [Ambien] 10 mg PO BEDTIME 11/30/16 Metoclopramide Tab [Reglan Tab] 5 mg PO ACHS #30 tab 12/02/16 Valacyclovir HCl 1 gm PO TID #20 tab 01/02/17 Review of Systems - Review of Systems Constitutional: States: malaise EENTM: States: no symptoms reported Respiratory: States: no symptoms reported Cardiology: States: no symptoms reported Gastrointestinal/Abdominal: States: abdominal pain - Heartburn, nausea, vomiting Musculoskeletal: States: other - bilateral leg pain due to chronic neuropathy Skin: States: no symptoms reported Neurological: States: no symptoms reported Endocrine: States: increased thirst All other Systems: No Change from Baseline Past Medical History (General) - Patient Medical History Hx Seizures: No Hx Stroke: No Hx Dementia: No Hx Asthma: No Hx of COPD: No Hx Cardiac Disorders: No Hx Congestive Heart Failure: No Hx Pacemaker: No Hx Hypertension: No Hx Thyroid Disease: No Hx Diabetes: Yes - IDDM Hx Gastroesophageal Reflux: No Hx Renal Disease: No Hx Cancer: No Hx of HIV: No Hx Hepatitis C: No Hx MRSA: No Surgical History: other - Vaccination History Hx Tetanus, Diphtheria Vaccination: Yes Hx Influenza Vaccination: No Hx Pneumococcal Vaccination: No - Social History Hx Tobacco Use: Yes Hx Alcohol Use: Yes Hx Substance Use: No Hx Substance Use Treatment: No Hx Depression: Yes Hx Physical Abuse: No Hx Emotional Abuse: No - Female History Hx Last Menstrual Period: 12/19/16 Patient : No Family Medical History - Family History Mother Family History: Unknown Living Status: Still Living Hx Family Asthma: No Hx Family Congestive Heart Failure: No Hx Family Hypertension: No Hx Family Stroke: No Hx Cardiac Disease: No Hx Family Diabetes: No Hx Family Cancer: No Father Family History: Unknown Living Status: Still Living Hx Family Asthma: No Hx Family Congestive Heart Failure: No Hx Family Hypertension: No Hx Family Stroke: No Hx Cardiac Disease: No Hx Family Diabetes: No Hx Family Cancer: No Physical Exam - Physical Exam General Appearance: Alert, No apparent distress, Ill Appearing, Well Developed, Well Groomed, Well Nourished Ears, Nose, Throat: other - Dry mucous membranes Neck: supple, normal inspection Respiratory: lungs clear, normal breath sounds, no respiratory distress, no accessory muscle use Cardiovascular/Chest: regular rate, rhythm, no gallop, no murmur Gastrointestinal/Abdominal: normal bowel sounds, non tender, soft, no organomegaly, no pulsatile mass Extremity: normal inspection Neurologic: alert, normal mood/affect, oriented x 3 Skin Exam: normal color, warm/dry Comments: Vital Signs 01/11/17 19:46 Temperature 97.6 F Pulse Rate [ 99 H left] Respiratory 18 Rate Blood Pressure 145/94 [left] O2 Sat by Pulse 98 Oximetry Progress - Progress Progress: 01/11/17 21:57 Started on insulin drip @ 15U/hr. 1 L NS bolus, Protonix 40mg IV, Zofran 4mg IV and Dilaudid 1mg IV Discussed with NATHAN Hinkle. Will admit to hospital for DKA - Results/Orders Results/Orders: Laboratory Tests 01/11/17 01/11/17 01/11/17 19:45 19:50 19:50 WBC 12.7 H RBC 4.45 Hgb 13.6 Hct 40.8 MCV 91.9 MCH 30.6 MCHC 33.3 RDW 13.5 Plt Count 392 MPV 9.7 Absolute Neuts (auto) 9.60 H Absolute Lymphs (auto) 2.30 Absolute Monos (auto) 0.70 Absolute Eos (auto) 0.00 Absolute Basos (auto) 0.20 H Neutrophils % 75.4 Lymphocytes % 17.7 L Monocytes % 5.4 Eosinophils % 0.3 L Basophils % 1.2 pCO2 pO2 HCO3 ABG pH ABG O2 Saturation ABG Base Excess ABG Deoxyhemoglobin Oxyhemoglobin % Carboxyhemoglobin % Methemoglobin % Sat Calc Total Hemoglobin Sodium 129 L Potassium 3.7 Chloride 95 L Carbon Dioxide 17 L Anion Gap 20.7 H BUN 10 Creatinine 1.13 BUN/Creatinine Ratio 8.8 L POC Glucose > 400 H* Random Glucose 583 H* Serum Osmolality 284.8 Calcium 8.8 Total Bilirubin 1.5 H AST 18 ALT 17 Alkaline Phosphatase 125 H Serum Total Protein 7.6 Albumin 3.9 Globulin 3.7 H Albumin/Globulin Ratio 1.1 Urine Color Urine Appearance Urine pH Ur Specific [place] Urine Protein Urine Glucose (UA) Urine Ketones Urine Blood Urine Nitrite Urine Bilirubin Urine Urobilinogen Ur Leukocyte Esterase Urine RBC Urine WBC Ur Epithelial Cells Urine Bacteria Urine Yeast Serum Ketones Small 01/11/17 01/11/17 20:10 21:45 WBC RBC Hgb Hct MCV MCH MCHC RDW Plt Count MPV Absolute Neuts (auto) Absolute Lymphs (auto) Absolute Monos (auto) Absolute Eos (auto) Absolute Basos (auto) Neutrophils % Lymphocytes % Monocytes % Eosinophils % Basophils % pCO2 29 L pO2 70 L HCO3 13.8 ABG pH 7.300 L ABG O2 Saturation 96.0 ABG Base Excess -11.1 ABG Deoxyhemoglobin 3.9 Oxyhemoglobin % 93.9 L Carboxyhemoglobin % 0.8 Methemoglobin % Sat 1.3 Calc Total Hemoglobin 11.4 L Sodium Potassium Chloride Carbon Dioxide Anion Gap BUN Creatinine BUN/Creatinine Ratio POC Glucose Random Glucose Serum Osmolality Calcium Total Bilirubin AST ALT Alkaline Phosphatase Serum Total Protein Albumin Globulin Albumin/Globulin Ratio Urine Color Yellow Urine Appearance Sl cloudy Urine pH 5.5 Ur Specific [place] 1.010 Urine Protein Negative Urine Glucose (UA) >=1000 H Urine Ketones 80 H Urine Blood Trace-lysed H Urine Nitrite Negative Urine Bilirubin Negative Urine Urobilinogen 0.2 Ur Leukocyte Esterase Negative Urine RBC 1-3 Urine WBC 3-5 H Ur Epithelial Cells 20-30 Urine Bacteria 1+ Urine Yeast 1+ budding H Serum Ketones Departure - Departure Clinical Impression: Dehydration, Diabetic gastroparesis Diabetes mellitus with ketoacidosis Qualifiers: Diabetes mellitus type: type 1 Diabetes mellitus complication detail: without coma Qualified Code(s): E10.10 - Type 1 diabetes mellitus with ketoacidosis without coma Diabetic neuropathy Qualifiers: Diabetes mellitus type: type 1 Diabetes mellitus complication detail: diabetic polyneuropathy Qualified Code(s): E10.42 - Type 1 diabetes mellitus with diabetic polyneuropathy Time of Disposition: 22:00 Disposition: Admit Patient Condition: Poor Departure Forms: ED Discharge - Pt. Copy, Patient Portal Self Enrollment Referrals: Tarsa Lockhart MD [Primary Care Provider] - 1-2 Weeks Home Medications: Ambulatory Orders Alprazolam [Alprazolam ER] 0.5 mg PO BID 11/29/16 Gabapentin 800 mg PO TID 11/29/16 Insulin Aspart [Novolog Flexpen] unit SC ACHS 11/29/16 Oxycodone HCl [Oxycontin] 40 mg PO Q12HR 11/29/16 Duloxetine HCl [Cymbalta] 60 mg PO QAM 11/30/16 Insulin Glargine [Lantus Solostar] 30 unit SC DAILY@1930 11/30/16 Promethazine Tab [Phenergan Tablet] 25 tablet PO PRN PRN 11/30/16 Zolpidem Tartrate [Ambien] 10 mg PO BEDTIME 11/30/16 Metoclopramide Tab [Reglan Tab] 5 mg PO ACHS #30 tab 12/02/16 Valacyclovir HCl 1 gm PO TID #20 tab 01/02/17 Decision To Admit - Decistion To Admit Decision to Admit Reason: Admit from ER Decision to Admit Date: 01/11/17 Decision to Admit Time: 21:59
[2017-01-11] MEDS ORDERED: SODIUM CHL 0.9% 250ML (AVIVA) 250 ML IVPB ONE (20:47)
[2017-01-11] MEDS ORDERED: INSULIN, REG.(HUMAN) 100 U/ML VIAL ONE (20:48)
[2017-01-11] MEDS: INSULIN, REG.(HUMAN) 250 UNITS in SODIUM CHL 0.9% 250ML (AVIVA) 247.5 ML IVPB SCH ×2 (20:54)
[2017-01-11] MEDS ORDERED: PANTOPRAZOLE SODIUM IV 40 MG VIAL IV ONE (21:24)
[2017-01-11] MEDS ORDERED: HYDROmorphone HCL INJ 2 MG/ML VIAL IV ONE (21:24)
[2017-01-11] MEDS ORDERED: KCL 20 MEQ/NS 1,000 ML IVS PRN (21:55)
[2017-01-11] MEDS ORDERED: IV SET AND CAP CHANGE INJ INJ SCH (22:00)
[2017-01-11] MEDS ORDERED: METOCLOPRAMIDE HCL INJ 10 MG/2 ML VIAL IV ONE (22:06)
[2017-01-11] MEDS: PROMETHAZINE HCL INJ 25 MG/ML VIAL IM PRN (22:10)
--- NOTE | 2017-01-11 22:20 | HP ---
SUPERVISING PHYSICIAN: CHIEF COMPLAINT: Nausea and vomiting with hyperglycemia. HISTORY OF PRESENT ILLNESS: Ms. Malagon is a 31 year-old female patient with a longstanding history of diabetes type 1 diagnosed since age 8. She came to the Emergency Room with elevated blood sugar. She noted that she had not been feeling well for the last several days since and her blood sugar has been running between 190 and 300. Today, she started having some nausea and vomiting. She was trying to get ready to go see her brother when she was not feeling well so she checked her blood sugar, it was 190, she took insulin at that time and checked it again as the blood sugar had gone up and she took 25 units of her Lantus. She continued to feel bad and rechecked her blood sugar and noted the machine was reading "high" so she came to the Emergency Room at that point. She had also noted she started having a yeast infection within the last several days which normally happens when her blood sugar are failing to be controlled. She does have a history of gastroparesis and a lap band and gastric sleeve procedure done in the past. She has not been able to hold any significant oral intake in and was concerned that she was developing DKA. On initial presentation to the Emergency Department laboratory studies showed her blood sugar was 583 with a sodium of 129 corrected to 140, potassium was at 3.7 initially. Liver functions showed an elevated alkaline phosphatase at 125. Anion gap was elevated at 20 with carbon dioxide at 17. Blood gas analysis has been completed and showed a pH of 7.3 with bicarb of 13.8 with PO2 of 70, PAC02 of 29, saturation 96% on room air. Serum ketones were positive. Urinalysis showed she had greater than 300 glucose, 80 ketones and on microscopic there was 1+ budding yeast with 1+ bacteria but 20 to 30 epithelial cells, 3 to 5 WBCs. Hemodynamically she was showing to be stable and afebrile with a temperature of 97.6, pulse 99, blood pressure 145/94, respiratory rate 18, saturation 98% on room air. The patient is now going to be admitted to the medical/surgical floor for further treatment of DKA and started on DKA protocol. She was given a liter of saline and started on insulin drip in the Emergency Department. She is admitted in stable condition. PAST MEDICAL HISTORY: 1. Type 1 diabetes mellitus diagnosed at age 8. 2. Peripheral neuropathy secondary to diabetes. 3. Chronic migraines. 4. Multiple episodes of endometriosis. 5. Gastroparesis secondary to complications from diabetes on Reglan. 6. Chronic back pain on multiple analgesics to include Oxycodone and OxyContin. PAST SURGICAL HISTORY: 1. Lap band procedure in 2004 and again in 2011. 2. Gastric sleeve in 2009. 3. Cosmetic surgery included abdominoplasty and bilateral breast implants. 4. Endometrial ablation and tubal ligation. CURRENT MEDICATIONS: 1. Oxycodone 40 mg at 7 o'clock and 1900. 2. Occupying 15 at 0900. 3. Alprazolam 0.5 mg twice a day. 4. Cymbalta 60 mg qAM. 5. Gabapentin 800 mg 3 times a day. 6. Reglan 5 mg ac and hs. 7. Lantus solostar 30 units subcu daily. 8. Phenergan tablets 25 mg every 4 hours as needed. . 9, Ambien 10 mg at bedtime. 10. Sliding scale with NovoLog. ALLERGIES: NO KNOWN DRUG ALLERGIES. MEDICAL PROVIDER/PRODUCT GRADER: Dr. Rico Avendaño [place]. Primary care physician - Dr. Lockhart. FAMILY HISTORY: Unremarkable. SOCIAL HISTORY: Patient is a housewife. She has never smoked. She did drink alcohol in the past but has not drank since age 27. She denies any illicit drug use. REVIEW OF SYSTEMS: CONSTITUTIONAL: Notes she has had some general malaise, weakness. Denies any fever or chills. HEENT: Has a history of migraines but denies any recent migraines, denies headaches. Notes that she had a mild sore throat but no ear pain. RESPIRATORY: No shortness of breath, cough or wheezing or hemoptysis. CARDIOVASCULAR: No reported chest pains, palpitations or syncopal episodes. GASTROINTESTINAL: As noted in the History of Present Illness, nausea and vomiting but denies any constipation or diarrhea or other bowel habit changes. . NEUROLOGIC: No reported headaches. No vision changes. No hearing disturbances. No syncopal episodes PHYSICAL EXAMINATION: VITAL SIGNS: Temperature 97.6, pulse 99, blood pressure 145/94, respirations 18, saturation 98% on room air. Admission weight 87.5 kg. GENERAL: The patient does appear ill and dehydrated but in no acute distress. At time of admission she is alert and oriented x 3. NECK: Supple, non-tender with full range of motion. No jugular venous distention. CHEST: Lungs are clear bilaterally without rhonchi, rales, or wheezes. CARDIOVASCULAR: Regular rate and rhythm without appreciable murmurs, rubs, or gallops. ABDOMEN: Soft, obese with positive bowel sounds with some epigastric tenderness as well as on the right upper quadrant, routine laboratory workup but no rebound tenderness. EXTREMITIES: No cyanosis, clubbing, or edema. NEUROLOGIC: She is alert and oriented x3. LABORATORY: CBC shows a leukocytosis of 12,700 with a hemoglobin of 13.6 and hematocrit 40.8, posterior cruciate ligament 392,000. Differential does show to be within normal limits. Blood gas analysis showed a pH of 7.30 with bicarb 13.8, PAC02 was 29, PA02 of 70. Saturation 96% on room air. Initial chemistries showed a sodium of 129 with potassium 3.7, carbon dioxide 17, anion gap 20, BUN 10, creatinine 1.3, blood sugar 583 corrected, sodium 140, serum osmolality 284, calcium 8.8, total bilirubin 1.5, AST, ALT both within normal limits. Alkaline phosphatase 125. Magnesium and phosphorus pending. Lipid panel pending. TSH normal at 3.8. Amylase and lipase pending. Urinalysis showed greater than 1000 glucose with 80 ketones, trace blood with microscopic showing 1 to 3 RBCs, 3 to 5 WBCs, 20 to 30 epithelials, 1+ bacteria, 1+ budding yeast, urine HCT negative. Initial serum ketones were small. MICROBIOLOGY: Urine cultures pending. Strep screen pending. RADIOLOGY: Chest x-ray is pending. CT of the abdomen and pelvis with contrast pending. ASSESSMENT: 1. Diabetic ketoacidosis, unknown etiology, felt to be secondary to underlying gastroparesis secondary to uncontrolled diabetes with no obvious signs of infection other than vaginal yeast infection. 2. Type 1 diabetes mellitus at 8 years of age. 3. Peripheral neuropathy complications from uncontrolled diabetes. 4. History of chronic migraines. 5. Questionable cystitis with a vaginal yeast infection secondary to hyperglycemia. PLAN: The patient will be admitted to the medical/surgical floor and started on DKA protocol. She is initiated on an insulin drip and IV fluids in the Emergency Department prior to admission. We will continue with management per our protocol. Will anticipate length of stay to be at least 2 to 3 days. As she is able to transition to p.o. diet and shows resolution of DKA and can go to subcu insulin, will start her on an oral diet. Until then she will be n.p.o. except for oral medication s as she is on multiple pain medication regimen. I have given her Phenergan for nausea or vomiting as needed IM as well as additional doses of Reglan IV to assist with any gastroparesis issues. Will await strep screen and urine culture results. Have started on Monistat for yeast infection as well as started Rocephin for questionable urinary tract infection, again pending final results of strep screen. Once stable clinically and able to be discharged, she will need close clinical followup with her tip banding machine operator, Dr. Avendaño and her primary care physician, Dr. Lockhart. Until the, we will continue to monitor and treat appropriately. #[id number] [facility]
[2017-01-11] MEDS ORDERED: MAGNESIUM SULFATE PREMIX 2GM 2 GM in PREMIX BAG 1 BAG IVPB ONE (22:44)
[2017-01-11] MEDS: KCL 40 MEQ/D5 1/2NS 1,000 ML IVS PRN (22:48)
[2017-01-11] MEDS ORDERED: MAGNESIUM SULFATE PREMIX 2GM 50 ML IVPB ONE (23:09)
[2017-01-11] MEDS ORDERED: SODIUM CHL 0.9% 50ML MIN-BAG+ 50 ML IVPB ONE (23:32)
[2017-01-11] MEDS ORDERED: GABAPENTIN 400 MG CAP ONE (23:32)
[2017-01-11] MEDS ORDERED: ALPRAZolam 0.5 MG TAB ONE (23:33)
[2017-01-11] MEDS ORDERED: cefTRIAXone SODIUM 1 GM VIAL ONE (23:33)
[2017-01-11] MEDS ORDERED: ZOLPIDEM TARTRATE 10 MG TAB ONE (23:34)
[2017-01-11] MEDS ORDERED: NON-FORMULARY MEDICATION 1 EA MIS (Alprazolam [Alprazolam Er] 0.5 MG) PO SCH (23:45)
[2017-01-12] MEDS: GABAPENTIN 800 MG PO SCH ×2 (00:35→00:43)
[2017-01-12] MEDS: cefTRIAXone SODIUM 1 GM in SODIUM CHL 0.9% 50ML MIN-BAG+ 50 ML IVPB SCH ×2 (00:46→23:06)
[2017-01-12] MEDS: ALPRAZolam 0.5 MG TAB PO SCH ×3 (00:46→21:22)
[2017-01-12] MEDS: ZOLPIDEM TARTRATE 10 MG TAB PO SCH ×2 (00:50→21:22)
[2017-01-12] MEDS ORDERED: SODIUM CHLORIDE 0.9% 1000ML 1,000 ML IVS ONE ×2 (02:25→06:41)
[2017-01-12] MEDS: KCL 40 MEQ/D5 1/2NS 1,000 ML IVS PRN ×4 (02:35→16:43)
[2017-01-12] MEDS: PANTOPRAZOLE SODIUM IV 40 MG VIAL IV SCH (06:14)
[2017-01-12] MEDS: SODIUM CHLORIDE 0.9% (FLUSH) 10 ML SYG IV PRN ×3 (06:15→18:26)
[2017-01-12] MEDS ORDERED: PROMETHAZINE HCL INJ 25 MG in SODIUM CHLORIDE 0.9% 50ML 50 ML IVPB ONE (06:54)
[2017-01-12] MEDS ORDERED: HYDROmorphone HCL INJ 2 MG/ML VIAL IV ONE (06:55)
[2017-01-12] MEDS ORDERED: SODIUM CHLORIDE 0.9% 50ML 50 ML ONE (06:57)
[2017-01-12] MEDS ORDERED: OXYCODONE HCL 40 MG PO SCH (07:00)
--- NOTE | 2017-01-12 07:02 | RAD ---
Procedure: XR CHEST 2 VIEWS Exam Date: 01/12/2017 Ordering Provider: Mikhail Williamson NP Clinical Indication: epigastric pain; RUQ pain Comparison: November 18, 2012 Findings: Cardiomediastinal silhouette: Unremarkable Pulmonary vasculature : Unremarkable Aortic contour: Unremarkable Focal lung consolidation: None Pleural effusion: None Pneumothorax: None Bones and soft tissues: Nonacute Impression: 1. No acute abnormalities in the chest. Electronically signed by: Kavin rIvin MD 01/12/2017 7:01 AM MANAGER DAIRY
--- NOTE | 2017-01-12 07:31 | CT ---
EXAM DESCRIPTION: Abdomen/Pelvis w/Contrast 01/12/2017 7:27 AM INTERIOR BLOCK WIRER CLINICAL HISTORY: 31 years, Female, RUQ and RLQ pain; Leukocytosis, DKA COMPARISON: None TECHNIQUE: Following the administration of intravenous contrast, volumetric CT acquisition was performed through the abdomen and pelvis. Images in the axial and coronal planes were presented for interpretation This exam was performed according to our departmental dose-optimization program, which includes automated exposure control, adjustment of the mA and/or kV according to patient size and/or use of iterative reconstruction technique. FINDINGS: The visualized portions of the lung bases are clear. The cardiomediastinal structures are within normal limits. Within the upper abdomen, the liver and spleen are normal in size and morphology. The gallbladder is normal in morphology. The intra/extrahepatic biliary tree is normal in appearance. The pancreas and adrenal glands are normal. The kidneys are normal in size bilaterally. The ureters are normal in course and caliber. There is a left renal cortical cyst on axial image 37 measuring 1.2 cm in diameter. There are surgical changes from gastric sleeve. The small intestines are within normal limits without evidence of bowel dilation or wall thickening. The appendix is well-visualized and normal, best seen on axial image 70 medial to the cecum. The colon is stool filled and unremarkable. Within the pelvis, the bladder and rectum are normal. The uterus and ovaries are age-appropriate. There are bilateral tubal occlusion devices in place. There are no pathologically enlarged inguinal, retroperitoneal, portacaval, or mesenteric lymph nodes. The soft tissue structures of the abdominal wall are normal. The visualized osseous structures are within normal limits for the patient's age. The abdominal aorta and its primary branches are normal in course and caliber. Limited evaluation of the venous structures demonstrates no gross abnormalities. IMPRESSION: 1. No acute intra-abdominal process. 2. Status post gastric sleeve and bilateral tubal occlusions. Electronically signed by: Soheila Denney MD 01/12/2017 7:30 AM INTERIOR BLOCK WIRER Workstation: [id number]
[2017-01-12] MEDS: INSULIN, REG.(HUMAN) 250 UNITS in SODIUM CHL 0.9% 250ML (AVIVA) 247.5 ML IVPB SCH ×6 (08:11→21:00)
[2017-01-12] MEDS ORDERED: SODIUM CHL 0.9% 250ML (AVIVA) 0 ML IVPB ONE (08:19)
[2017-01-12] MEDS ORDERED: INSULIN, REG.(HUMAN) 100 U/ML VIAL ONE ×2 (08:20→20:57)
[2017-01-12] MEDS: GABAPENTIN 400 MG CAP PO SCH ×3 (08:27→21:22)
[2017-01-12] MEDS: DULoxetine HCL 30 MG CAP PO SCH (08:27)
[2017-01-12] MEDS ORDERED: SODIUM CHLORIDE 0.9% 1000ML 1,000 ML IVS PRN (08:47)
[2017-01-12] MEDS ORDERED: LIDOCAINE VIS-MYLANTA 30 ML UD PO ONE (09:37)
[2017-01-12] MEDS ORDERED: MAGNESIUM SULFATE PREMIX 2GM 2 GM in PREMIX BAG 1 BAG IVPB ONE (10:03)
[2017-01-12] MEDS ORDERED: MAGNESIUM SULFATE PREMIX 2GM 50 ML IVPB ONE (10:09)
[2017-01-12] MEDS ORDERED: METOCLOPRAMIDE HCL INJ 10 MG/2 ML VIAL IV ONE (11:26)
[2017-01-12] MEDS ORDERED: KCL 20 MEQ/NS 1,000 ML IVS ONE (11:29)
[2017-01-12] MEDS: PROMETHAZINE HCL INJ 25 MG/ML VIAL IM PRN (11:32)
[2017-01-12] MEDS: HYDROmorphone HCL INJ 2 MG/ML VIAL IV PRN ×3 (11:32→22:36)
[2017-01-12] MEDS ORDERED: INSULIN LISPRO 100 UNITS/ML PEN SUBCU ONE ×3 (16:15→19:23)
[2017-01-12] MEDS: METOCLOPRAMIDE HCL INJ 10 MG/2 ML VIAL IV SCH ×2 (16:53→22:30)
--- NOTE | 2017-01-12 18:45 | PN ---
DATE: 01/12/17 SUPERVISING PHYSICIAN: Earl Parker M.D. SUBJECTIVE: The patient continues to have some nausea this morning. Will work on trying to increase her oral intake. Her labs have now leveled off and she is no longer in DKA state. Remains on an insulin drip. OBJECTIVE: VITAL SIGNS: Temperature 98, pulse 61, blood pressure 146/84, respirations 16, satting 96 on room air. I's and O's show approximately 6,000 in with 1500 out. Weight is 85.7 kg. CHEST: Lungs are clear to auscultation. HEART: Regular rate and rhythm. ABDOMEN: Soft, non-tender. Positive bowel sounds. EXTREMITIES: No clubbing, cyanosis or edema. NEUROLOGIC: She was alert and oriented times three. LABORATORY: CBC shows a normalized white count at 8.7, hemoglobin 11.8, hematocrit 35.0, platelet count 322,000. Differential is within normal limits. Chemistries: Her potassium now is normalized at 4.0, sodium 136. Blood sugars since admission on insulin drip had been ranging in the 140s to 150s. BUN is less than 5, creatinine 0.57, calcium 7.5 corrected for a low albumin at 2.9 shows to be 8.7. Phosphorus has normalized to 2.9, magnesium is still low at 1.7 after 2 gram replacement IV. TSH was 3.80. Triglycerides on admission showed 276 with cholesterol 277 with LDL 186, HDL was 50. Serum ketones became negative at around 2:00 and has so since that point. Anion gap has normalized and is 10.5. MICROBIOLOGY: Urine culture shows no growth at 24 hours. Group A Strep culture was negative at 24 hours. RADIOLOGY: Abdominal pelvis CT with contrast this morning per radiology interpretation showed no acute intraabdominal process status post gastric sleeve and bilateral tubal occlusions. Chest x-ray two view per radiology interpretation showed no acute abnormalities in the chest. ASSESSMENT: 1. Diabetic ketoacidosis on admission secondary to underlying complications of diabetes with gastroparesis due to uncontrolled blood sugars with hemoglobin A1c of 11.5 with the patient requiring initiation of DKA protocol and showing a good response with IV fluids and insulin drip. 2. Type 1 diabetes mellitus since age 8. 3. Peripheral neuropathies complications from uncontrolled diabetes on multiple opioid analgesics to include Oxycodone and Oxy Contin. 4. History of recurrent migraines. 5. Questionable cystitis with a vaginal yeast infection secondary to chronic hyperglycemia. 6. Questionable opioid withdrawal contributing to some of her nausea with the patient having a longstanding history of chronic Opioid usage and unable to hold any oral medications down for the last 72 hours possibly contributing to the development of diabetic ketoacidosis. PLAN: The patient is no longer in DKA state. She will remain on D5 and a half normal saline with 20 of potassium at 125. She did receive approximately 6 to 7 liters of fluid so far since admission. Will advance her diet as she tolerates and once she is able to tolerate diet, will start her on subcue insulin with anticipation of discontinuing the insulin drip. I started her on some Dilaudid given that there is a concern that she may be having some opioid withdrawal as she unable to take her oral opioid medication regimen. As soon as she is able to tolerate oral intake with assistance of Phenergan, fluids and Reglan, will start her back on her regular Oxy Contin and Oxycodone regimen and titrate off the p.r.n. Dilaudid. She is no longer complaining of any abdominal pains and there were no abdominal pains listed on the exam. This was felt to probably be more likely to just underlying previous nausea and vomiting and possibly some dehydration with the CT scans all showing to be without any acute pathology. Will continue to monitor her urine cultures and target antibiotic therapy as appropriate. If those remain negative at 24 hours, will stop her antibiotics and as she can tolerate give her a dose of Diflucan for treatment of the underlying yeast infection along with the Monistat. Again, will try to advance her diet at lunch today and work to start her on subcue insulin, and titrate off the insulin drip. Once she is off the insulin drip, she will be on a.c. and h.s. sliding scale as per protocol, and once showing to be stable will anticipate discharge later tomorrow. Once discharged, she will need close clinical followup with both her primary care provider, Dr. Lockhart, as well as close clinical followup with her petroleum blending plant operator, Dr. Camejo. Until then, will continue to monitor and treat appropriately. #[id number] [facility]
[2017-01-12] MEDS ORDERED: INSULIN DETEMIR 100 UNITS/ML PEN SUBCU ONE (19:24)
[2017-01-12] MEDS ORDERED: FLUCONAZOLE 150 MG TAB PO ONE (20:13)
[2017-01-12] MEDS ORDERED: SODIUM CHL 0.9% 250ML (AVIVA) 250 ML IVPB ONE (20:56)
[2017-01-12] MEDS ORDERED: MICONAZOLE NITRATE 2 % 45 GM TUBE VAG SCH (21:00)
[2017-01-12] MEDS ORDERED: SODIUM CHL 0.9% 50ML MIN-BAG+ 50 ML IVPB ONE (21:03)
[2017-01-12] MEDS ORDERED: cefTRIAXone SODIUM 1 GM VIAL ONE (21:04)
[2017-01-13] MEDS: KCL 40 MEQ/D5 1/2NS 1,000 ML IVS PRN (00:55)
[2017-01-13] MEDS: METOCLOPRAMIDE HCL INJ 10 MG/2 ML VIAL IV SCH ×2 (04:27→10:03)
[2017-01-13] MEDS: PROMETHAZINE HCL INJ 25 MG/ML VIAL IM PRN ×2 (04:47→11:01)
[2017-01-13] MEDS: HYDROmorphone HCL INJ 2 MG/ML VIAL IV PRN (05:00)
[2017-01-13] MEDS: PANTOPRAZOLE SODIUM IV 40 MG VIAL IV SCH (06:37)
[2017-01-13] MEDS ORDERED: INSULIN LISPRO 100 UNITS/ML PEN SUBCU ONE (07:19)
[2017-01-13] MEDS ORDERED: GLUCAGON INJ 1 MG VIAL SUBCU PRN (07:19)
[2017-01-13] MEDS ORDERED: DEXTROSE 50% 25 GM/50 ML SYG IV PRN (07:19)
[2017-01-13] MEDS: SODIUM CHLORIDE 0.9% (FLUSH) 10 ML SYG IV SCH ×2 (07:25→09:30)
[2017-01-13] MEDS: GABAPENTIN 400 MG CAP PO SCH (09:29)
[2017-01-13] MEDS: DULoxetine HCL 30 MG CAP PO SCH (09:29)
[2017-01-13] MEDS: ALPRAZolam 0.5 MG TAB PO SCH (09:29)
[2017-01-13] MEDS ORDERED: INSULIN LISPRO 100 UNITS/ML PEN SUBCU SCH (11:30)
[2017-01-13 12:53] VITALS: BP 118/72; TEMP 98.9; O2SAT 96
[2017-01-13] MEDS ORDERED: PNEUMOCOCCAL VACCINE 0.5 ML INJ IM ONE (13:21)
[2017-01-13] MEDS ORDERED: PNEUMOCOCCAL VACCINE 0.5 ML INJ ONE (13:34)
[2017-01-14] MEDS ORDERED: PANTOPRAZOLE SODIUM TAB 40 MG PO SCH (06:30)
--- NOTE | 2017-01-26 16:38 | DS ---
SUPERVISING PHYSICIAN: Sammy Swan M.D. DISCHARGE DIAGNOSIS: 1. Diabetic ketoacidosis on admission secondary to underlying complications of diabetes with gastroparesis due to uncontrolled blood sugars with hemoglobin A1c of 11.5 with the patient requiring initiation of DKA protocol and resolving with IV fluids and insulin drip. 2. Type 1 diabetes mellitus since age 8 poorly controlled with an A1c of 11.5. 3. Peripheral neuropathies complications from uncontrolled diabetes on multiple opioid analgesics to include Oxycodone and Oxy Contin. 4. History of recurrent migraines. 5. Questionable cystitis with a vaginal yeast infection secondary to chronic hyperglycemia with culture results showing no cultures on urine. 6. Possible opioid withdrawal contributing to some of her nausea with the patient having a longstanding history of chronic Opioid usage and having been unable to hold any oral medications down for 72 hours prior to admission possibly contributing to the development of diabetic ketoacidosis, resolved after starting back on p.o. medications. HISTORY OF PRESENT ILLNESS: Ms. Malagon is a 31 year-old female patient with a longstanding history of diabetes type 1 diagnosed at age 8. She came to the Emergency Room initially on 01/11/17 with elevated blood sugars. She noted that she had not been feeling well for the last several days after Thanksgiving and her blood sugar has been running between 190 and 300. On admission, she started having some nausea and vomiting. She was trying to get ready to go see her brother when she noted she was not feeling well so she checked her blood sugar. At that time, it was noted to be190 so she took insulin. She then rechecked it and her blood sugar had gone up and she took 25 units of Lantus. She continued to feel bad and rechecked her blood sugar and noted the machine was reading "high" so she came to the Emergency Room for evaluation. She had also noted she started having a yeast infection within the last several days which normally happens when her blood sugar are failing to be controlled. She does have a history of gastroparesis and a lap band and gastric sleeve procedure done in the past. She has not been able to hold any significant oral intake in and was concerned that she was developing DKA. On initial presentation to the Emergency Department laboratory studies showed her blood sugar was 583 with a sodium of 129 corrected to 140, potassium was at 3.7 initially. Liver functions showed an elevated alkaline phosphatase at 125. Anion gap was 20 and carbon dioxide at 17. Blood gas analysis initially in the E. R. showed she had a pH of 7.3 with bicarb of 13.8 with PO2 of 70, PAC02 of 29 , saturation 96% on room air. Serum ketones were positive. Urinalysis showed she had greater than 300 glucose, 80 ketones and on microscopic there was 1+ budding yeast with 1+ bacteria but 20 to 30 epithelial cells, 3 to 5 WBCs. Hemodynamically she was showing to be stable and afebrile with a temperature of 97.6, pulse 99, blood pressure 145/94, respiratory rate 18, saturation 98% on room air. She was then admitted to the medical/surgical floor for further treatment of DKA and started on DKA protocol. She initially was given a liter of saline and started on insulin drip in the Emergency Department. She is admitted in stable condition. LABORATORY STUDIES: CBC on admission showed a leukocytosis of 12,700, prior to discharge was normalized to 8,700, hemoglobin 11.8, hematocrit 35.0, platelet count 322,000. Differential was within normal limits. Blood gas analysis in the E. R. showed a pH of 7.3, PCO2 of 29, PO2 of 70, bicarb 13.8 with base excess of -11. Chemistries initially in the Emergency Department showed blood sugar was 583, sodium 129, potassium 3.7, carbon dioxide 17, anion gap was 20, BUN 10, creatinine 1.13, calcium 8.8. Phosphorus was 2, magnesium 1.5. Total bilirubin 1.5 with alkaline phosphatase of 125. Lipid panel showed triglycerides at 276 with cholesterol 277 with HDL 50, LDL 186. Amylase and lipase were within normal limits. TSH was within normal limits at 3.8. After initiation of fluids and DKA protocol prior to discharge, electrolytes had normalized with sodium 136, potassium 4.8, glucose 185, anion gap 12.8, BUN less than 5, creatinine 0.6, calcium 8.2, magnesium 1.6. Phosphorus had normalized at 2.9. Blood sugars initially showed greater than 400, after DKA protocol started she responded well. Blood sugars remained between 150 and 200 , prior to discharge blood sugar was 169. Urine on admission showed greater than 1,000 glucose, 80 of ketones, trace lysed blood. Microscopic revealed 1 to 3 RBCs, 3 to 5 WBCs, 20 to 30 epithelials, 1+ bacteria and 1+ budding yeast. Beta HCG urine was negative. She was producing ketones up until 2:00 on 01/12 after which she remained negative and on the morning of discharge was no longer showing any ketone production. She had a Strep A by DNA that was negative. Urine culture showed no growth at 48 hours. RADIOLOGY: She had a CT of the abdomen and pelvis with contrast and per radiology interpretation there was no acute intraabdominal process. There is note of status post gastric sleeve and bilateral tubal occlusion. She had a chest x-ray that showed no acute abnormalities of the chest per radiology interpretation. HOSPITAL COURSE: Ms. Malagon was admitted on 01/11/17 for DKA as noted in the History of Present Illness. She was started on DKA protocol insulin drip given well over 6 liters of fluid the entire hospitalization. She converted out of DKA and maintained a stable blood sugar, and was slowly titrated off her insulin drip as she was advanced to subcue insulin and was able to tolerate a diet. For her vaginal infection, she was started on Rocephin and the culture showed to be negative. This was stopped. She was also started on Flagyl for 2 doses and continued on Metronidazole vaginally. She was showing to have no more nausea or vomiting but showing to be stable, therefore on the date of discharge, 01/13/17, was discharged to continue with outpatient treatment. PLAN: Ms. Malagon was discharged on 01/13/17. At discharge, the patient was instructed to have close clinical followup with her primary care provider, Dr. Lockhart, on 01/21/17 and her superintendent marine within 7 to 10 days or sooner. She was encouraged fluids to prevent dehydration and return to the hospital should she have any concerning symptoms at discharge. New medications included: 1. Monistat 7 cream at bedtime. All other medications prior to admission were continued. Diet at discharge was diabetic diet. Activity is increase as tolerated. Condition at discharge was stable and improved. [facility][id number] [facility]
== END 2017-01-13 14:21 | disposition home or self-care (01) | DRG 638 ==
LOC: ER 19:32 → MS 22:18
PROVIDERS: ADMIT Nurse Practitioner Family; ATTEND Nurse Practitioner Family
PROC: BW21YZZ Computerized Tomography (CT Scan) of Abdomen and Pelvis using Other Contrast (ICD-10-PCS; 2017-01-12)
PROC: 3E0234Z Introduction of Serum, Toxoid and Vaccine into Muscle, Percutaneous Approach (ICD-10-PCS; principal; 2017-01-13)
DX: E10.10 Type 1 diabetes mellitus with ketoacidosis without coma (principal); F11.23 Opioid dependence with withdrawal; E10.42 Type 1 diabetes mellitus with diabetic polyneuropathy; E10.43 Type 1 diabetes mellitus with diabetic autonomic (poly)neuropathy; K31.84 Gastroparesis; G43.909 Migraine, unspecified, not intractable, without status migrainosus; G89.29 Other chronic pain; M54.9 Dorsalgia, unspecified; B37.3 Candidiasis of vulva and vagina; E86.0 Dehydration; N30.90 Cystitis, unspecified without hematuria; Z79.4 Long term (current) use of insulin; Z23 Encounter for immunization

== ENCOUNTER 2017-01-28 23:48 | Emergency (ER) | payer BC ==
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
[2017-01-29] MEDS ORDERED: INSULIN, REG.(HUMAN) 100 U/ML VIAL IV ONE ×2 (00:21→02:13)
[2017-01-29] MEDS ORDERED: SODIUM CHLORIDE 0.9% 1000ML 1,000 ML IVS ONE (00:21)
[2017-01-29] MEDS ORDERED: ONDANSETRON INJ 4 MG/2 ML VIAL IV ONE ×2 (00:22→02:14)
[2017-01-29] MEDS ORDERED: cefTRIAXone SODIUM 1 GM in SODIUM CHL 0.9% 50ML MIN-BAG+ 50 ML IVPB ONE (00:23)
[2017-01-29] MEDS ORDERED: KETOROLAC TROMETHAMINE INJ 30 MG/ML VIAL IV ONE (00:24)
[2017-01-29] MEDS ORDERED: cefTRIAXone SODIUM 1 GM VIAL ONE (01:10)
[2017-01-29] MEDS ORDERED: SODIUM CHL 0.9% 50ML MIN-BAG+ 50 ML IVPB ONE (01:10)
[2017-01-29] MEDS ORDERED: fentaNYL CITRATE INJ 50 MCG/ML AMP IV ONE (02:14)
[2017-01-29] MEDS ORDERED: BUPIVACAINE 0.5% 30 ML VIAL INJ ONE (02:19)
[2017-01-29 02:47] VITALS: BP 127/79; TEMP 97.5; O2SAT 98
== END 2017-01-29 02:46 | disposition home or self-care (01) ==
LOC: ER 23:48
DX: L03.211 Cellulitis of face (principal); E10.65 Type 1 diabetes mellitus with hyperglycemia; Z87.891 Personal history of nicotine dependence; Z79.4 Long term (current) use of insulin; Z79.899 Other long term (current) drug therapy
CPT/HCPCS: 36415; 36416; 80053; 81001; 81002; 81025; 82948; 85025; J0696; J1885; J2405; J3010; J7030; J7050

== ENCOUNTER 2017-04-30 01:12 | Emergency (ER) | payer BC ==
[2017-04-30 01:28] VITALS: TEMP 96.6
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
[2017-04-30] MEDS ORDERED: KETOROLAC TROMETHAMINE INJ 60 MG/2 ML VIAL IM ONE (01:49)
[2017-04-30] MEDS ORDERED: CEPHALEXIN MONOHYDRATE 500 MG CAP PO ONE (01:49)
[2017-04-30] MEDS ORDERED: SULFA/TRIMETH 800/160 (DS) TAB 1 EA TAB PO ONE (01:50)
[2017-04-30] MEDS ORDERED: ONDANSETRON ODT 8 MG TAB SL PRN (01:53)
[2017-04-30 02:14] VITALS: BP 136/84; O2SAT 97
== END 2017-04-30 02:14 | disposition home or self-care (01) ==
LOC: ER 01:12
DX: L03.113 Cellulitis of right upper limb (principal); E11.9 Type 2 diabetes mellitus without complications; Z79.4 Long term (current) use of insulin; Z87.891 Personal history of nicotine dependence
CPT/HCPCS: 87070; J1885

== ENCOUNTER 2017-06-03 09:42 | Inpatient (IN) | payer BC ==
[2017-06-03] MEDS ORDERED: SODIUM CHLORIDE 0.9% (FLUSH) 10 ML SYG IV PRN ×2 (10:11→16:02)
[2017-06-03] MEDS ORDERED: SODIUM CHLORIDE 0.9% 1000ML 1,000 ML IVS ONE (10:11)
[2017-06-03] MEDS ORDERED: ONDANSETRON INJ 4 MG/2 ML VIAL IV ONE (10:11)
[2017-06-03] MEDS ORDERED: KETOROLAC TROMETHAMINE INJ 30 MG/ML VIAL IV ONE (10:11)
[2017-06-03] MEDS ORDERED: CLINDAMYCIN IV 900MG 900 MG in PREMIX BAG 1 BAG IVPB ONE (10:13)
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
[2017-06-03] MEDS ORDERED: CLINDAMYCIN IV 900MG 50 ML IVPB ONE ×2 (11:23→20:25)
--- NOTE | 2017-06-03 12:23 | HP ---
SUPERVISING PHYSICIAN: Earl Parker MD CHIEF COMPLAINT: Anxiety and nausea and vomiting. HISTORY OF PRESENT ILLNESS: Ms. Malagon is a 32 year-old female patient who presented to the Emergency Room today after swelling to her left lower leg distal to the posterior knee. It started several days ago after she injected methamphetamines to her leg. She also complained that she had severe nausea and vomiting with anxiety. Over the last couple of days she did 3 days of methamphetamine use and denied a prior history of it but she has been going through some personal problems in the last few weeks and decided to use methamphetamines. She does see a chronic pain management doctor, Dr. Krueger in [facility], telephone number [phone]. She also has a history of diabetes mellitus type 1 with a significant history of DKA and multiple admissions due to poor medical compliance. In the Emergency Room her vital signs were within normal limits and she was afebrile but her blood sugars were 384. Her alkaline phosphatase was 152 and her carbon dioxide was 17. Her anion gap was 17.8. The remainder of her metabolic panel was within normal limits. WBCs were 8.2 with a hemoglobin of 14.5 and hematocrit 42.3. Her platelet count was 431,000. D-dimer was 320. Urinalysis showed a urine glucose of 500 with a trace of lysed urine blood and a small amount of urine bilirubin. Urine drug screen was positive for amphetamines as well as benzodiazepines and serum ketones were small. She was given one liter of fluids as well as some Clindamycin. Ativan and Toradol were also given. I was called for hospital admission. PAST MEDICAL HISTORY: 1. Type 1 diabetes mellitus diagnosed at age 8. 2. Peripheral neuropathy secondary to diabetes. 3. Chronic migraines. 4. Multiple episodes of endometriosis. 5. Gastroparesis secondary to diabetes. 6. Chronic back pain on multiple opioids managed by Dr. Krueger in [facility]. PAST SURGICAL HISTORY: 1. Lap band procedure in 2004 and again in 2011. 2. Gastric sleeve in 2009. 3. Cosmetic surgery including abdominoplasty and bilateral breast implants. 4. Endometrial ablation and tubal ligation. CURRENT MEDICATIONS: Per the EMR and awaiting verification. ALLERGIES: NO KNOWN DRUG ALLERGIES. PRIMARY CARE PHYSICIAN: Dr. Lockhart SOCIAL HISTORY: Patient is single. She has one child. She denies any tobacco or ETOH use. Prior to this episode, she denies any illicit drug use. REVIEW OF SYSTEMS: GENERAL: Negative for fatigue, fever or weight changes. . HEENT: Positive for migraines but none recently. Denies sinus symptoms, ear pain or vision changes. RESPIRATORY: Denies shortness of breath, coughing or wheezing. CARDIOVASCULAR: Denies chest pains, palpitations or tachycardia. GASTROINTESTINAL: As Positive for nausea and vomiting. Negative for constipation or diarrhea. NEUROLOGIC: Negative for seizures or dizziness. EXTREMITIES: Positive for pain to the posterior lower leg just distal to the knee. PHYSICAL EXAMINATION: VITAL SIGNS: Temperature 98.2, pulse 75, blood pressure 121/78, respiration rate 20, 02 saturation 98% on room air. GENERAL: This is a 32 year-old female patient lying in her hospital bed in no acute distress. HEENT: Numbness and tingling. Pupils are equal and reactive. Oropharynx clear. NECK: Supple without mass. CHEST: Essentially clear to auscultation bilaterally. CARDIOVASCULAR: Regular rate and rhythm.. ABDOMEN: Soft, nondistended, non-tender, bowel sounds are positive. EXTREMITIES: No cyanosis, clubbing, or edema. There is an area to her posterior left leg just distal to her knee that is warm to touch as well as erythematous. There is no drainage or fluctuance noted at this time. NEUROLOGIC: She is awake, alert and oriented x3, although very anxious at this time. LABS AND FILMS: As per the history of present illness with the exception of her lower extremity ultrasound shows negative for deep venous thrombosis. All other labs and films have been reviewed via the EMR. ASSESSMENT: 1. Diabetic ketoacidosis. 2. Cellulitis of the left lower leg most likely secondary to a contaminated needle from IV drug use. 3. Drug abuse with recent history of methamphetamine use over 3 days. 4. Anxiety and depression. 5. Type 1 diabetes mellitus with poor medical compliance and diagnosed at age 8. 6. Nausea and vomiting most likely due to poor diabetic compliance as well as gastroparesis. 7. Gastroparesis. PLAN: We will admit the patient to the hospital. I have ordered a serum ketone level for tomorrow morning as well as labs. I will give her several liters of fluids and will do every 2-hour Accu-Cheks with sliding scale coverage. I have verified her OxyContin and MS-Contin dosages from Dr. Krueger, pain medicine specialist in [place], [place] and those have been restarted. We had a long discussion about illicit drug use and she has been encouraged to stop. I have ordered a PPI for ulcer prophylaxis as well as Lovenox for DVT prophylaxis. We will monitor the patient closely and follow as needed. Dr. Parker is the collaborating physician and available for consultation. [facility][id number] [facility]
[2017-06-03] MEDS ORDERED: DEXTROSE 50% 25 GM/50 ML SYG IV PRN ×2 (15:00→22:04)
[2017-06-03] MEDS ORDERED: GLUCAGON INJ 1 MG VIAL SUBCU PRN ×2 (15:00→22:04)
[2017-06-03] MEDS ORDERED: ALBUTEROL SULFATE 2.5 MG/3 ML VIAL NEB PRN (16:03)
--- NOTE | 2017-06-03 16:26 | US ---
EXAM DESCRIPTION: Venous,Lower Extremity LT CLINICAL HISTORY: LLE SWELLING, PAIN COMPARISON: None Available. TECHNIQUE: Left lower extremity venous grayscale, spectral, and color Doppler sonographic images. FINDINGS: There is no DVT identified. There is normal color flow observed with good flow augmentation. All deep veins compress normally. IMPRESSION: Negative for DVT Electronically signed by: Jomar Parsons MD 06/03/2017 4:25 PM CDT
[2017-06-03] MEDS: ONDANSETRON INJ 4 MG/2 ML VIAL IV PRN (17:19)
[2017-06-03] MEDS: ALPRAZolam 0.5 MG TAB PO PRN ×2 (17:20→18:36)
[2017-06-03] MEDS: INSULIN LISPRO 100 UNITS/ML PEN SUBCU SCH ×2 (17:23→21:26)
[2017-06-03] MEDS: IV SET AND CAP CHANGE INJ INJ SCH (17:28)
[2017-06-03] MEDS ORDERED: ENOXAPARIN SODIUM 40 MG/0.4 ML SYG SUBCU SCH (17:30)
[2017-06-03] MEDS ORDERED: PANTOPRAZOLE SODIUM IV 40 MG VIAL IV SCH (17:30)
[2017-06-03] MEDS ORDERED: PROMETHAZINE HCL 25 MG TAB ONE (17:39)
[2017-06-03] MEDS: SODIUM CHLORIDE 0.9% 1000ML 1,000 ML IVS PRN ×3 (17:53→23:36)
[2017-06-03] MEDS: PROMETHAZINE HCL 25 MG TAB PO PRN (17:53)
[2017-06-03] MEDS: MORPHINE ER 30 MG TAB PO SCH (21:29)
[2017-06-03] MEDS: ZOLPIDEM TARTRATE 10 MG TAB PO SCH (21:30)
[2017-06-03] MEDS: CLINDAMYCIN IV 900MG 900 MG in PREMIX BAG 1 BAG IVPB SCH (21:32)
[2017-06-03] MEDS ORDERED: INSULIN GLARGINE 30 UNIT SC SCH (22:00)
[2017-06-03] MEDS: INSULIN DETEMIR 100 UNITS/ML PEN SUBCU SCH (22:42)
[2017-06-04] MEDS ORDERED: INSULIN LISPRO 100 UNITS/ML PEN SUBCU SCH
[2017-06-04] MEDS: KCL 20MEQ/D5 1/2NS 1,000 ML IVS PRN ×2 (01:29→13:47)
[2017-06-04] MEDS ORDERED: CLINDAMYCIN IV 900MG 50 ML IVPB ONE ×3 (04:08→20:14)
[2017-06-04] MEDS: CLINDAMYCIN IV 900MG 900 MG in PREMIX BAG 1 BAG IVPB SCH ×3 (06:27→22:57)
[2017-06-04] MEDS: INSULIN LISPRO 100 UNITS/ML PEN SUBCU SCH ×6 (08:09→21:19)
[2017-06-04] MEDS: MORPHINE ER 30 MG TAB PO SCH ×2 (08:12→22:54)
[2017-06-04] MEDS: ENOXAPARIN SODIUM 40 MG/0.4 ML SYG SUBCU SCH (08:12)
[2017-06-04] MEDS: PANTOPRAZOLE SODIUM TAB 40 MG PO SCH (08:13)
[2017-06-04] MEDS ORDERED: SODIUM CHLORIDE 0.9% 1000ML 1,000 ML IVS ONE ×2 (11:04→18:44)
[2017-06-04] MEDS: ONDANSETRON INJ 4 MG/2 ML VIAL IV PRN (21:20)
--- NOTE | 2017-06-04 21:49 | PN ---
DATE: 06/04/17 SUPERVISING PHYSICIAN: Earl Parker M.D. SUBJECTIVE: The patient is lying in her hospital bed. She is awake and hungry. Denies any chest pain, nausea, vomiting, diarrhea, coughing or shortness of breath. Family members have been bringing her in food that is not on her diet. She is encouraged to stop. OBJECTIVE: VITAL SIGNS: Temperature 98.2, pulse rate 92, blood pressure 165/78 , respiratory rate 16, O2 sat is 95% on room air. RESPIRATORY: Essentially clear to auscultation bilaterally. CARDIAC: Regular rate and rhythm. GASTROINTESTINAL: Abdomen is soft, nondistended, non-tender. Bowel sounds are positive. EXTREMITIES: No cyanosis, clubbing or edema. INTEGUMENT: The area on her posterior left calf continues to be slightly reddened with some mild warmth to touch, but has improved since yesterday. LABORATORY: WBCs are 6.4, hemoglobin 13.4 with hematocrit 39.7, platelets 337. Blood sugars have run between 140 and 303. Sodium 137, potassium 3.9, chloride 112, carbon dioxide 19, BUN 9, creatinine 0.55, calcium 8.2. Serum ketones are small. All other labs and films have been reviewed via the EMR. ASSESSMENT: 1. Diabetic ketoacidosis that has slightly improved. She has received approximately 6 liters of fluids. 2. Cellulitis of the left lower leg most likely secondary to a contaminated needle from IV drug use. 3. Drug abuse with recent history of methamphetamine use over 3 days. 4. Anxiety and depression. 5. Type 1 diabetes mellitus with poor medical compliance and diagnosed at age 8. 6. Nausea and vomiting most likely due to gastroparesis. 7. Gastroparesis. PLAN: We will continue present supportive care. I will continue to give her an additional 1 to 2 liters of fluids until her serum ketones are negative. Will recheck those in the morning. She continues to be poorly compliant with her diet and I have explained to her that her present condition will not improve until she follows a diabetic diet. Will continue with the Clindamycin. Hopefully she can be discharged in the next day or so after her labs have stabilized and continued improvement to the area of cellulitis of the left leg. Otherwise we will continue to monitor the patient closely and follow as needed. Dr. Parker is the collaborating physician available for consultation. #[id number] [facility]
[2017-06-04] MEDS ORDERED: INSULIN DETEMIR 100 UNITS/ML PEN SUBCU SCH (22:00)
[2017-06-04] MEDS: ZOLPIDEM TARTRATE 10 MG TAB PO SCH (22:55)
[2017-06-04] MEDS: INSULIN DETEMIR 100 UNITS/ML PEN SUBCU SCH (22:56)
[2017-06-05] MEDS ORDERED: ACETAMINOPHEN 325 MG TAB ONE ×2 (02:12→02:13)
[2017-06-05] MEDS ORDERED: ACETAMINOPHEN 325 MG TAB PO PRN (02:14)
[2017-06-05] MEDS: KCL 20MEQ/D5 1/2NS 1,000 ML IVS PRN ×2 (02:21→12:18)
[2017-06-05] MEDS ORDERED: CLINDAMYCIN IV 900MG 50 ML IVPB ONE ×2 (05:55→14:36)
[2017-06-05] MEDS: CLINDAMYCIN IV 900MG 900 MG in PREMIX BAG 1 BAG IVPB SCH ×2 (05:58→14:39)
[2017-06-05] MEDS: PANTOPRAZOLE SODIUM TAB 40 MG PO SCH (05:59)
[2017-06-05] MEDS: INSULIN LISPRO 100 UNITS/ML PEN SUBCU SCH ×5 (08:18→21:00)
[2017-06-05] MEDS: PROMETHAZINE HCL 25 MG TAB PO PRN (08:31)
[2017-06-05] MEDS: MORPHINE ER 30 MG TAB PO SCH ×2 (08:43→20:56)
[2017-06-05] MEDS: ENOXAPARIN SODIUM 40 MG/0.4 ML SYG SUBCU SCH (08:50)
[2017-06-05] MEDS ORDERED: MAGNESIUM SULFATE PREMIX 4GM 4 GM in PREMIX BAG 1 BAG IVPB ONE (09:24)
[2017-06-05] MEDS ORDERED: MAGNESIUM SULFATE PREMIX 4GM 50 ML IVPB ONE (10:18)
[2017-06-05] MEDS ORDERED: IBUPROFEN 200 MG TAB PO PRN (10:49)
[2017-06-05] MEDS: ALPRAZolam 0.5 MG TAB PO PRN (11:26)
[2017-06-05] MEDS: BIFIDOBACTERIUM INFANTIS 4 MG CAP PO SCH ×2 (12:18→20:56)
[2017-06-05] MEDS: SULFA/TRIMETH 800/160 (DS) TAB 1 EA TAB PO SCH ×2 (16:05→20:55)
[2017-06-05] MEDS: DOXYCYCLINE HYCLATE CAP 100 MG CAP PO SCH ×2 (16:06→20:56)
[2017-06-05] MEDS: ZOLPIDEM TARTRATE 10 MG TAB PO SCH (20:57)
[2017-06-05] MEDS: INSULIN DETEMIR 100 UNITS/ML PEN SUBCU SCH (21:00)
--- NOTE | 2017-06-05 21:57 | PN ---
DATE: 06/05/17 SUPERVISING PHYSICIAN: Earl Parker M.D. SUBJECTIVE: The patient is lying in her bed. She is asleep. She awakens easily. Denies any chest pain, nausea, vomiting or diarrhea. She does complain that her left lower leg hurts in the area of infection. It hurts when she walks but otherwise she has had no problems. We discussed her diet as her blood sugars have been somewhat erratic, although her ketones are negative but she continues to have family friends bring in food from outside. OBJECTIVE: VITAL SIGNS: T max 24 hours is 101.3, heart rate 101, blood pressure 108/78, respiratory rate 18, O2 sat is 94% on room air. RESPIRATORY: Essentially clear to auscultation bilaterally. CARDIAC: Regular rate and rhythm. GASTROINTESTINAL: Abdomen is soft, nondistended, non-tender. Bowel sounds are positive. EXTREMITIES: No cyanosis, clubbing or edema. The area of induration to the posterior portion of her upper left leg is mostly unchanged from yesterday. It is still erythematous, warm to the touch and tender to palpation. There is no fluctuance or drainage. NEUROLOGIC: She is awake, alert and oriented times three. LABORATORY: Serum ketones are negative. Sodium 136, potassium 3.8, chloride 108, carbon dioxide 20, BUN 6, creatinine 0.56. Glucose has run between 154 and 315. Calcium 7.9, magnesium 1.3, CRP is 4. WBCs are 12.3 with hemoglobin 11.4, hematocrit 34.8. All other labs and films have been reviewed via the EMR. ASSESSMENT: 1. Diabetic ketoacidosis that has improved. Her serum ketones are now negative. 2. Cellulitis of the left lower leg most likely secondary to a contaminated needle from IV drug use. 3. Drug abuse with recent history of methamphetamine use over 3 days. 4. Anxiety and depression. 5. Type 1 diabetes mellitus with poor medical compliance, diagnosed at age 8. 6. Nausea and vomiting most likely due to gastroparesis. 7. Gastroparesis. PLAN: We will continue present supportive care. Her temperature spiked overnight to 101.3 and I am not quite sure why she did that. Will monitor it overnight. It may be due to her poor improvement on her cellulitis on that leg. I have changed her from the IV Cleocin to p.o. Doxycycline and Bactrim. Will monitor to see if her cellulitis improves. Will repeat her lab and hopefully she can be discharged tomorrow or the next day with p.o. Doxycycline and Bactrim. Will continue to monitor her closely and follow as needed. Dr. Parker is the collaborating physician available for consultation. #[id number] [facility]
[2017-06-06] MEDS: PANTOPRAZOLE SODIUM TAB 40 MG PO SCH (06:01)
[2017-06-06] MEDS: INSULIN LISPRO 100 UNITS/ML PEN SUBCU SCH ×3 (07:43→17:01)
[2017-06-06] MEDS ORDERED: SODIUM CHLORIDE 0.9% (FLUSH) 10 ML SYG IV SCH (09:00)
[2017-06-06] MEDS: MORPHINE ER 30 MG TAB PO SCH (09:00)
[2017-06-06] MEDS: DOXYCYCLINE HYCLATE CAP 100 MG CAP PO SCH (09:01)
[2017-06-06] MEDS: SULFA/TRIMETH 800/160 (DS) TAB 1 EA TAB PO SCH (09:01)
[2017-06-06] MEDS: ENOXAPARIN SODIUM 40 MG/0.4 ML SYG SUBCU SCH (09:01)
[2017-06-06] MEDS: BIFIDOBACTERIUM INFANTIS 4 MG CAP PO SCH (09:01)
--- NOTE | 2017-06-06 10:11 | CONS ---
REFERRING PHYSICIAN: Hospital service HISTORY OF PRESENT ILLNESS: The patient is a 32-year-old who was admitted with pain and swelling in her left leg and diabetic ketoacidosis. The history is complicated with several social issues in the patient's life recently and she does admit to attempting to inject methamphetamine to this area on her left leg. The patient's blood sugars are now improved and her white blood cell count is now normal. She had a significant fever to 102 approximately 36 hours ago, but is afebrile now. PAST MEDICAL HISTORY: 1. Type 1 diabetes. 2. Peripheral neuropathy. 3. Chronic migraines. 4. Endometriosis. 5. Gastroparesis. 6. Chronic back pain. PAST SURGICAL HISTORY: 1. Lap band times 2 and a gastric sleeve. 2. Abdominoplasty. 3. Breast implants. 4. Endometrial ablation. 5. Tubal ligation. 6. Childbirth times 1. CURRENT MEDICATIONS: 1. Xanax. 2. Ambien. 3. Oxycodone. 4. MS Contin from a pain doctor. ALLERGIES: NO KNOWN DRUG ALLERGIES. SOCIAL HISTORY: The patient is single, mother of one, but she has recently lost her child. She denies tobacco or alcohol use. REVIEW OF SYSTEMS: Essentially unremarkable other than the problems associated with her diabetes and this leg and back pain. PHYSICAL EXAMINATION: GENERAL: The patient is awake, alert, cooperative. VITAL SIGNS: The patient is currently afebrile, normotensive. HEENT: Sclerae nonicteric. ABDOMEN: Benign. EXTREMITIES: Left lower extremity, medial aspect just distal to the popliteal fossa is erythematous with rubor and induration. There is no discrete area of fluctuance and this is an area where the patient said she attempted to inject methamphetamine. LABORATORY: White count 6.8 this morning, hemoglobin 10, 57% neutrophils, platelet count 275,000. Chemistries this morning reveal potassium 3.4, glucose 136, lipase 19, creatinine 0.43. She did have an ultrasound of this leg in the Emergency Room and that is read as if it were for DVT and it was negative. ASSESSMENT: 1. Diabetes mellitus, type 1, with ketoacidosis which is resolving. 2. Cellulitis of the left leg secondary likely to a chemical injection with possible cellulitis or just a reaction from the subcutaneous injection. PLAN: Recommend continue the antibiotics. I would keep her in the hospital for another day and use warm, moist packs to see if this will either help resolve the situation or show an area of fluctuance that is drainable. #[id number] [facility]
[2017-06-06 10:51] VITALS: TEMP 98.6; O2SAT 97
--- NOTE | 2017-06-06 14:27 | US ---
EXAM DESCRIPTION: Soft Tissue,Extremity CLINICAL HISTORY: 32 years Female, cellulitis COMPARISON: None. FINDINGS: Real-time sonographic images of the area of edema and swelling medial to the left knee. There is subcutaneous edema in the soft tissues of this region. There is also enlargement and thrombosis of a superficial vein in the soft tissue of this portion of the knee. IMPRESSION: Soft tissue edema is seen in the medial left knee. Superficial vein thrombosis in the soft tissue medial to the left knee is also seen. Electronically signed by: Pranay Ramirez MD 06/06/2017 2:26 PM CDT
[2017-06-06] MEDS ORDERED: MAGNESIUM SULFATE PREMIX 2GM 2 GM in PREMIX BAG 1 BAG IVPB ONE (14:37)
[2017-06-06] MEDS ORDERED: ONDANSETRON 4 MG TAB PO PRN (15:00)
[2017-06-06] MEDS ORDERED: MAGNESIUM SULFATE PREMIX 2GM 50 ML IVPB ONE (15:34)
[2017-06-06] MEDS ORDERED: DESVENLAFAXINE ER 50 MG TAB PO SCH (16:30)
[2017-06-06] MEDS ORDERED: MAGNESIUM CHLORIDE 64 MG TAB PO ONE (17:00)
[2017-06-06] MEDS: IV SET AND CAP CHANGE INJ INJ SCH (17:02)
[2017-06-06] MEDS ORDERED: MAGNESIUM CHLORIDE 64 MG TAB ONE (17:04)
[2017-06-06] MEDS ORDERED: DESVENLAFAXINE ER 50 MG TAB PO ONE (17:05)
[2017-06-06 17:34] VITALS: BP 120/70
--- NOTE | 2017-06-10 08:57 | DS ---
SUPERVISING PHYSICIAN: Earl Parker MD DISCHARGE DIAGNOSIS: 1. Diabetic ketoacidosis, improved. Her serum ketones are now negative. 2. Cellulitis of the left lower leg most likely secondary to a contaminated needle from IV drug use. 3. Suicide ideation with threats in the hospital to commit suicide. [facility] was called in and she signed a no-harm contract. 4. Drug abuse with recent history of methamphetamine use over 3 days. 5. Anxiety and depression. 6. Type 1 diabetes mellitus with poor medical compliance, diagnosed at age 8. 7. Nausea and vomiting most likely due to gastroparesis. 8. Gastroparesis. HISTORY OF PRESENT ILLNESS: This is a 32-year-old female patient who presented to the Emergency Room on the day of admission after swelling to her left lower leg distal to the posterior knee. It started several days prior to her admission after she attempted to inject methamphetamines to her leg. She also complained that she had severe nausea and vomiting with anxiety. She missed her pain medication appointment several days prior to her arrival to the Emergency Room. She sees Dr. Krueger in [facility]. For 3 days prior to admission to the Emergency Room, she did methamphetamines although she denies a prior history of it. She has been going through some personal problems and decided to try some methamphetamines. Per her mother who reported to me the patient had lost custody of her daughter on the day of admission. The mother also told me that she was very manipulative and had multiple suicide attempts. Her pain management doctor is Dr. Krueger in [facility], telephone number [phone]. She also has a history of diabetes mellitus type 1 diagnosed at age 8. She has frequent hospitalizations for diabetic ketoacidosis as well as gastroparesis. In the Emergency Room her vital signs were within normal limits and she was afebrile but her blood sugars were 384. Her alkaline phosphatase was 152 and her carbon dioxide was 17. Her anion gap was 17.8. The remainder of her metabolic panel was within normal limits. WBCs were 8.2 with a hemoglobin of 14.5 and hematocrit 42.3. Her platelet count was 431,000. D- dimer was 320. Urinalysis showed a urine glucose of 500 with a trace of lysed urine blood and a small amount of urine bilirubin. Urine drug screen was positive for amphetamines as well as benzodiazepines and serum ketones were small. She was given one liter of fluids as well as some clindamycin. Ativan and Toradol were also given. She was admitted to the hospital. HOSPITAL COURSE: The patient was given a large amount of fluids. It took approximately 48 to 72 hours before her ketones were negative. She received approximately 10 liters of fluids as well as frequently being on q.4h. accuchecks with sliding scale insulin. Her medications were restarted including her pain medications. They were all verified by her physician as well as the pharmacy that she gets her medications filled at. The cellulitis on her left leg did not improve over the next several days. CRP was done and was 4. She was switched from IV clindamycin to oral doxycycline and Bactrim. Dr. Mckinney was consulted and a sonogram was done. Soft tissue sonogram showed soft tissue edema in the medial left knee, superficial vein thrombosis in the soft tissue medial to the left knee is also seen. Because there was no abscess , the patient was to be discharged home. Prior to discharge, the patient called her mother three times and threatened suicide. The mother called me because she was very worried. Nursing staff spoke with the patient and she did say that she was suicidal. [facility] was consulted and they came to interview the patient as well as our Diagnostic Radiologist personnel, Zaira Suarez. They all felt that she was of no harm to herself and she signed a no-harm agreement. After discussing at length with her about her plan of care and to followup with Dr. Lockhart as well as her pain management, she was to be discharged home. DISCHARGE PLAN: The patient will be discharged home in stable condition. She is to call [facility] for any further suicide ideation problems as per their instructions. Because she was unable to get to her pain management physician, I have given her 3 days' worth of Tylenol No. 3. I have also started her on Pristiq for her depression. She is to have close followup with her primary care physician, Dr. Lockhart, within the next one to two weeks. I have also given her a prescription for Bactrim and doxycycline. She is to return to the hospital for any further problems or complications or call Dr. Lockhart's office. She is to increase her activity as tolerated. DISCHARGE MEDICATIONS: 1. NovoLog insulin. 2. Oxycodone. 3. Ambien. 4. Alprazolam. 5. Morphine sulfate ER. 6. Align. 7. Pristiq. 8. Doxycycline. 9. Promethazine. 10. Bactrim. 11. Acetaminophen with codeine. [facility][id number] [facility]
== END 2017-06-06 17:55 | disposition home or self-care (01) | DRG 602 ==
LOC: ER 09:42 → MS 12:20
PROVIDERS: ADMIT Nurse Practitioner Acute Care; ATTEND Nurse Practitioner Acute Care
DX: L03.116 Cellulitis of left lower limb (principal); E10.10 Type 1 diabetes mellitus with ketoacidosis without coma; E10.42 Type 1 diabetes mellitus with diabetic polyneuropathy; G43.909 Migraine, unspecified, not intractable, without status migrainosus; N80.9 Endometriosis, unspecified; E10.43 Type 1 diabetes mellitus with diabetic autonomic (poly)neuropathy; K31.84 Gastroparesis; G89.29 Other chronic pain; M54.9 Dorsalgia, unspecified; F15.10 Other stimulant abuse, uncomplicated; F41.9 Anxiety disorder, unspecified; F32.9 Major depressive disorder, single episode, unspecified; Z79.4 Long term (current) use of insulin; Z91.5 Personal history of self-harm

== ENCOUNTER 2017-06-13 07:48 | Emergency (ER) | payer BC ==
[2017-06-13 08:00] VITALS: O2SAT 100
[2017-06-13] MEDS ORDERED: SODIUM CHLORIDE 0.9% 1000ML 1,000 ML IVS ONE ×2 (08:10→10:05)
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
[2017-06-13] MEDS ORDERED: ONDANSETRON INJ 4 MG/2 ML VIAL IV ONE (08:30)
[2017-06-13] MEDS ORDERED: ALPRAZolam 0.25 MG TAB PO ONE (08:41)
[2017-06-13] MEDS ORDERED: INSULIN, REG.(HUMAN) 250 UNITS in SODIUM CHL 0.9% 250ML (AVIVA) 247.5 ML IVPB SCH ×2 (10:30)
[2017-06-13] MEDS ORDERED: SODIUM CHL 0.9% 250ML (AVIVA) 250 ML IVPB ONE (10:33)
[2017-06-13] MEDS ORDERED: INSULIN, REG.(HUMAN) 100 U/ML VIAL ONE (10:34)
[2017-06-13] MEDS ORDERED: INSULIN, REG.(HUMAN) 100 U/ML VIAL IV ONE (11:38)
[2017-06-13] MEDS ORDERED: SODIUM CHLORIDE 0.9% 500ML 500 ML IVS ONE (12:07)
[2017-06-13] MEDS ORDERED: KCL 40 MEQ/D5 1/2NS 1,000 ML IVS PRN (13:35)
[2017-06-13 13:36] VITALS: TEMP 97.3
[2017-06-13 14:38] VITALS: BP 133/66
== END 2017-06-13 15:00 | disposition short-term general hospital (02) ==
LOC: ER 07:48
DX: E10.10 Type 1 diabetes mellitus with ketoacidosis without coma (principal); Z79.4 Long term (current) use of insulin; Z79.899 Other long term (current) drug therapy; Z79.891 Long term (current) use of opiate analgesic
CPT/HCPCS: 36415; 36416; 36600; 80048; 80053; 80307; 81001; 81025; 82803; 82805; 82948; 83690; 84100; 84484; 85025; J2405; J7030; J7040

== ENCOUNTER 2017-07-02 07:41 | Emergency (ER) | payer BC ==
[2017-07-02 07:55] VITALS: BP 186/105; TEMP 98.4; O2SAT 96
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
[2017-07-02] MEDS ORDERED: cloNIDine HCL 0.1 MG TAB PO ONE (08:02)
[2017-07-02] MEDS ORDERED: TETANUS,DIPHTHERIA,PERTUSSIS 1 EA SYG IM ONE (08:02)
[2017-07-02] MEDS ORDERED: SODIUM CHLORIDE 0.9% 1000ML 1,000 ML IVS ONE (08:03)
== END 2017-07-02 12:07 | disposition short-term general hospital (02) ==
LOC: ER 07:41
DX: F15.93 Other stimulant use, unspecified with withdrawal (principal); Z04.41 Encounter for examination and observation following alleged adult rape; E11.9 Type 2 diabetes mellitus without complications; Z79.4 Long term (current) use of insulin; Z87.891 Personal history of nicotine dependence

== ENCOUNTER 2018-06-26 15:24 | Emergency (ER) | payer SELFPAY ==
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
[2018-06-26] MEDS ORDERED: INSULIN, REG.(HUMAN) 100 U/ML VIAL SUBCU ONE (17:15)
[2018-06-26] MEDS ORDERED: INSULIN DETEMIR 100 UNITS/ML PEN SUBCU ONE ×2 (19:24→19:36)
[2018-06-26] MEDS ORDERED: LORazepam 0.5 MG TAB PO ONE (19:44)
[2018-06-26 21:52] VITALS: O2SAT 99
[2018-06-26] MEDS ORDERED: cloNIDine HCL 0.1 MG TAB ONE (22:10)
[2018-06-26] MEDS ORDERED: cloNIDine HCL 0.1 MG TAB PO ONE (22:10)
[2018-06-26 22:58] VITALS: TEMP 98.5
[2018-06-26 23:50] VITALS: BP 144/110
== END 2018-06-26 23:42 ==
LOC: ER 15:24
DX: R45.851 Suicidal ideations (principal); F11.23 Opioid dependence with withdrawal; F15.23 Other stimulant dependence with withdrawal; E10.65 Type 1 diabetes mellitus with hyperglycemia; F32.9 Major depressive disorder, single episode, unspecified; R56.9 Unspecified convulsions; Z79.4 Long term (current) use of insulin; Z79.899 Other long term (current) drug therapy; Z87.891 Personal history of nicotine dependence
CPT/HCPCS: 36415; 36416; 80053; 80307; 80329; 81001; 81002; 81025; 82948; 84443; 85025; 93005; J1815

== ENCOUNTER 2018-07-29 17:00 | Emergency (ER) | payer SELFPAY ==
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
[2018-07-29] MEDS: PROCHLORPERAZINE INJ 10 MG/2 ML VIAL IV ONE (19:18)
[2018-07-29] MEDS: LACTATED RINGERS 1,000 ML IVS ONE (19:19)
[2018-07-29 21:20] VITALS: O2SAT 99
[2018-07-29] MEDS: CEFUROXIME AXETIL TAB 250 MG TAB PO ONE (23:10)
[2018-07-29] MEDS: NITROFURANTOIN MONOHYDRATE MAC 100 MG CAP PO ONE (23:10)
[2018-07-29 23:27] VITALS: BP 148/90; TEMP 98.2
== END 2018-07-29 23:26 | disposition home or self-care (01) ==
LOC: ER 17:00
DX: F15.20 Other stimulant dependence, uncomplicated (principal); N39.0 Urinary tract infection, site not specified; F31.9 Bipolar disorder, unspecified; R56.9 Unspecified convulsions; R32 Unspecified urinary incontinence; E11.9 Type 2 diabetes mellitus without complications; Z98.84 Bariatric surgery status; Z87.891 Personal history of nicotine dependence; Z79.4 Long term (current) use of insulin; Z79.899 Other long term (current) drug therapy
CPT/HCPCS: 36416; 80048; 80076; 80307; 81001; 82550; 82553; 82948; 84484; 84703; 85025; 85610; 85730; 87086; 93005; J0780; J2060; J7120